=== PATIENT | male | born 1950 | race Caucasian/White ===

== ENCOUNTER → 2018-02-04 09:25 | Outpatient (CLI) | payer MEDICARE, OTHER, SELFPAY ==
[2018-02-04 12:36] LABS: Erythrocyte Sedimentation Rate 6 mm/hr (0-20)
[2018-02-04 12:38] LABS: Absolute Lymphocyte Count 1.73 X10^3/ul (0.83-4.51); Absolute Neutrophil Count 3.7 X10^3/uL (2.0-7.7); Basophil# 0.04 X10^3/uL; Basophil% 0.6 % (0-1); Eosinophil# 0.27 X10^3/uL; Eosinophils% 4.2 % (0-5); Hematocrit 42.8 % (40-54); Lymphocyte # 1.73 X10^3/ul (4.0); Lymphocyte % 26.8 % (19-41); Mean Corpuscular Hgb 30.4 pg (27.0-32.0); Mean Corpuscular Volume 86.8 fL (80-94); Mean Platelet Vol. 9.7 fl (6.2-12.0); Monocyte# 0.64 X10^3/uL; Monocyte% 9.9 % (0-10); Neutrophil # 3.71 X10^3/uL (2.7-7.7); Neutrophil % 57.6 % (47-70); Platelet Count 267 K/mm3 (150-450); RBC Distribution Width CV 12.4 % (11.6-14.6); Red Blood Count 4.93 M/mm3 (4.6-6.2); Vitamin D,25 Hydroxy 50.8 ng/mL (29.95-100.01); White Blood Count 6.5 K/mm3 (4.4-11.0)
[2018-02-04 12:39] LABS: POSITIVE COUNT NO; POSITIVE DIFFERENTIAL NO; POSITIVE MORPHOLOGY NO
[2018-02-04 12:54] LABS: Anion Gap 5 (5-15); BUN 11 mg/dL (7-18); BUN/Creat Ratio 11.3 RATIO (10-20); Calcium,Total 8.7 mg/dL (8.5-10.1); Chloride 104 mmol/L (98-107); Cholesterol 201 mg/dL (200); Creatinine, Serum 0.97 mg/dL (0.70-1.30); EST Glomerular Filtration Rate 82 mL/min (>60); Est Glom Filt Rate - Afr Amer 99 mL/min (>60); Glucose 89 mg/dL (74-106); High Density Lipoprotein 63 mg/dL; PSA,Total- Diagnostic 5.08 ng/mL (0.0-4.0); Sodium Level 138 mmol/L (136-145); Triglycerides 105 mg/dL; Very Low Density Lipoprotein 21 mg/dL (5-40)
== END ==
PROVIDERS: Family Provider Family Medicine; PCP Family Medicine; Visit Provider Family Medicine
DX: I10 Essential (primary) hypertension (principal); D64.9 Anemia, unspecified; K51.00 Ulcerative (chronic) pancolitis without complications; E78.00 Pure hypercholesterolemia, unspecified; R97.20 Elevated prostate specific antigen [PSA]; E55.9 Vitamin D deficiency, unspecified
CPT/HCPCS: 36415; 80048; 80061; 82306; 84153; 85025; 85652

== ENCOUNTER 2018-05-19 15:26 | Outpatient (RCR) | payer MEDICARE, OTHER, SELFPAY ==
--- NOTE | 2018-05-19 16:18 | HP.PTEVAL_ITS ---
Patient's Visit Information COLETTE HART is a 68 year old M referred to Physical Therapy by Eric Luu with a diagnosis of L PFitis. Date of Evaluation: 05/19/18 Physical Therapist: Homero Welsh, DPT, [place] - Visit Plan Plan: No skilled PT required . Pt is doing well and we reviewed appropriate HEP and activities and use of orthotics. He will f/.u with doctor in 2 weeks and in the unlikely case that things worsen, should be sent back for modalities. - Subjective Findings: L pFits since before December. Much better now though and almost did not come. Got customized inserts for 5 weeks. Doing stretches against wall and PROM PF adn gastroc. 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 Plays tennis 2x/week adn tolerating it now for the last 3 weeks. took 2 months off. Pain was in L heel. Now he notices it very little. None today playing tennis, sprinting without a problem. 85% better overall, Pain this week in L heel was 2/10 in am. Was in a bot for 6 weeks during the day before orthotics. Has night splint also that he wore. Sleep is good. Bathroom at night bother him. Not employed. Basic ADLs are OK. Spends day on internet. Mows lawn, rakes leaves. Push mow was hard this summer. activities are back to pretty normal. Slowly went back to tennis. - Pain L heel Pain Intensity (Out of 10): 0 Pain Intensity Range: 0, 2 - Objective Walks I and normally, transfers I. No antalgia. No tenderness to palpation In L LE. Normal foot and ankle mechanics. PROM DF 8 degrees B with knee straght, knee bent to 10 degrees L and 12 R. 4+/5 strength in all 4 ankle motions B without pain. AROM WFL ankles and knees. HS mildly tight B. SLS symmetrical and without pain. - Rehabilitation Potential Physical Therapy Diagnosis: L PFItis, resolving. Rehabilitation Potential: Good - Anticipated Interventions Patient/Client Instruction: Educate patient on: Condition For the Purpose of:: To increase tolerance to activity/condition/position Thank you for the opportunity to evaluate your patient. For Medicare and Medicare HMO plans, please review the plan of care and approve it. It will need to be FAXED BACK to us at [phone] for Medicare purposes. For Medicare only, by signing this I certify the plan of care. Please let me know if there are questions or concerns regarding this plan of care. Physician Signature: Date:
--- OUTSIDE RECORDS SUMMARY | 2018-07-14 21:49 | XMS RPT_ITS ---
:1950 Author Organization OHIP Care Team Providers Name Role Phone THOMAS MARTINEZ (PROFESSIONAL ATHLETE) Attending Unavailable MARGUERITE GARCIA Attending Unavailable THOMAS MARTINEZ (PROFESSIONAL ATHLETE) Referring Unavailable Fer Bah Attending Unavailable Fer Bah Referring Unavailable Fer Bah Primary Care Unavailable Eric Luu Attending Unavailable Eric Luu Referring Unavailable Fer Bah Primary Care Unavailable PROBLEMS PROBLEMS DATE TYPE CONDITION / CODE ATTENDING STATUS SOURCE 10/30/2016 Active Pouchitis / MARGUERITE GARCIA Active [facility] K91.850(ICD-10) Main [place] Repository PROCEDURES PROCEDURES No Procedure Records FoundRESULTS RESULTS INITAL EVALUATION (1) Observed: 05/23/2018 Status: F Source: THUAN - PT 6:49 AM REPOSITORY [facility] [address] [place] [address]. [address] [place] [address] Fax REHABILITATION SERVICES INITIAL EVALUATION MR#: [id number] Acct: [id number] Name: COLETTE HART Rep #: [id number] : 1950 68 From: Homero Welsh DPT, OCS, CSCS Referring DrPrakash: Eric Luu DPM Status: DIS RCR Insurance: MEDICARE PART A B [facility] Patient's Visit Information COLETTE HART is a 68 year old M referred to Physical Therapy by Eric Luu with a diagnosis of L PFitis. Date of Evaluation: 05/19/18 Physical Therapist: Homero Welsh DPT, OC - Visit Plan Plan: No skilled PT required . Pt is doing well and we reviewed appropriate HEP and activities and use of orthotics. He will f/.u with doctor in 2 weeks and in the unlikely case that things worsen, should be sent back for modalities. - Subjective Findings: L pFits since before December. Much better now though and almost did not come. Got customized inserts for 5 weeks. Doing stretches against wall and PROM PF adn gastroc. 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 Plays tennis 2x/week adn tolerating it now for the last 3 weeks. took 2 months off. Pain was in L heel. Now he notices it very little. None today playing tennis, sprinting without a problem. 85% better overall, Pain this week in L heel was 2/10 in am. Was in a bot for 6 weeks during the day before orthotics. Has night splint also that he wore. Sleep is good. Bathroom at night bother him. Not employed. Basic ADLs are OK. Spends day on internet. Mows lawn, rakes leaves. Push mow was hard this summer. activities are back to pretty normal. Slowly went back to tennis. - Pain L heel Pain Intensity (Out of 10): 0 Pain Intensity Range: 0, 2 - Objective Walks I and normally, transfers I. No antalgia. No tenderness to palpation In L LE. Normal foot and ankle mechanics. PROM DF 8 degrees B with knee straght, knee bent to 10 degrees L and 12 R. 4+/5 strength in all 4 ankle motions B without pain. AROM WFL ankles and knees. HS mildly tight B. SLS symmetrical and without pain. - Rehabilitation Potential Physical Therapy Diagnosis: L PFItis, resolving. Rehabilitation Potential: Good - Anticipated Interventions Patient/Client Instruction: Educate patient on: Condition For the Purpose of:: To increase tolerance to activity/condition/position Thank you for the opportunity to evaluate your patient. For Medicare and Medicare HMO plans, please review the plan of care and approve it. It will need to be FAXED BACK to us at [phone] for Medicare purposes. For Medicare only, by signing this I certify the plan of care. Please let me know if there are questions or concerns regarding this plan of care. Physician Signature: Date: <Electronically signed by Homero Welsh DPT, OCS, CSCS> 05/23/18 0649 CC: Eric Luu DPM; Fer Bah MD EBG Signed PROGRESS Observed: 05/18/2018 Status: COMPLETED Source: [place] 6:11 PM [facility] [place] REPOSITORY HNO ID: [id number] Author: Dara Hall Oberc Service: (none) Author Type: (none) Type: Progress Notes Filed: 05/18/2018 6:14 PM Note Text: spoke with patient and family/friend at bedside post procedure. Procedure Findings: Findings: ? ? ?Normal cuff ? ? ?Normal pouch body ? ? ?Normal afferent limb. ? ? ?Bx taken Impression: Plan: 1. scope as above 2. Green Tea extract - BCGC 3.Biopsy obtained, await path 4. Maintain Weight , 10 % 5. Follow a High Protein , Low carb, Low fiber diet 's article about Green tea and effect on Pouch SURGICAL PATHOLOGY Observed: 05/18/2018 Status: C Source: [place] 5:56 PM [facility] REPOSITORY ADDENDUM PRESENT Specimen originated from [facility] Specimen #: [id number] Submitting Physician: MARGUERITE GARCIA ([id number]) FINAL DIAGNOSIS 1. Terminal ileum, biopsy (A) - Focal mild chronic active enteritis; negative for granulomas, pyloric gland metaplasia and dysplasia; see comment. 2. Pouch, biopsy (B) - Chronic inactive enteritis; negative for granulomas, pyloric gland metaplasia and dysplasia; see comment. 3. Rectal cuff, biopsy (C) - Chronic inactive enteritis; negative for granulomas, pyloric gland metaplasia and dysplasia; see comment. SS/kr 05/20/2018 COMMENT 1,2,3. IgG-4 immunostain is pending; the result will be issued in an addendum. Sandy Coley M.D. (Electronic Signature) SPECIMEN SUBMITTED A: TERMINAL ILEUM, BIOPSY B: POUCH, BIOPSY C: RECTAL CUFF, BIOPSY ADDENDUM Date Ordered: 05/23/2018 Date Reported: 05/23/2018 At the request of the clinician, IgG-4 immunostain is performed and shows three IgG-4 positive plasma cells in one high-power field in part A; four IgG-4 positive plasma cells in one high-power field in part B; and seven IgG-4 positive plasma cells in one high-power field in part C. The significance of these findings is unclear. SS/dss 05/23/2018 Laboratory Developed Test (LDT) Disclaimer: Positive and negative controls stain appropriately. Performance characteristics of immunohistochemical, immunofluorescent and chromogenic in-situ hybridization tests have been determined by [facility]'s [facility] [place] ([facility]) in a manner consistent with CLIA requirements. One or more of these tests have not been cleared or approved by the FDA. [facility] is regulated under CLIA as qualified to perform high-complexity testing. These tests are used for clinical purposes. They should not be regarded as investigational or for research. Addendum Pathologist: Sandy Coley M.D. Electronic Signature CLINICAL DATA HISTORY OF POUCHITIS R/O CROHN'S, DYSPLASIA, IgG-4, AND AUTOIMMUNE GROSS DESCRIPTION A. Received in formalin are two pieces of tucker, soft tissue aggregating to 0.7 x 0.2 x 0.2 cm. Totally submitted in one cassette. B. Received in formalin are two pieces of tucker, soft tissue aggregating to 0.8 x 0.2 x 0.1 cm. Totally submitted in one cassette. C. Received in formalin is one piece of tucker, soft tissue measuring 0.4 x 0.2 x 0.2 cm. Totally submitted in one cassette. Gross examination performed at [facility], [address] [place] [address] 05/19/2018 3:49:05 PM Date of Report: 05/20/2018 Date of Procedure: 05/18/2018 Date of Receipt: 05/19/2018 Submitted by: MARGUERITE GARCIA ([id number]) Location: [facility] A3 Diagnostic interpretation performed at [place] [address]. PROGRESS Observed: 04/13/2018 Status: COMPLETED Source: [place] 11:40 AM [facility] REPOSITORY HNO ID: [id number] Author: Geneva Perdomo Service: (none) Author Type: (none) Type: Progress Notes Filed: 04/24/2018 8:36 PM Note Text: Follow Up Visit/ IBD Medications: Current Outpatient Prescriptions: S-Adenosylmethionine (MAKSIM-E) 400 mg tab Take by mouth once daily. omega-3/dha/epa/dpa/fish oil (OMEGA-3 2100 ORAL) Take by mouth once daily. ciprofloxacin HCl (CIPRO) 250 mg tablet Take 1 tablet by mouth twice daily as needed. CALCIUM CARBONATE/VITAMIN D3 (VITAMIN D-3 ORAL) Take 600 Units by mouth once daily. Evening Wingate Oil 500 mg cap Take 1 capsule by mouth once daily. Bifidobacterium Infantis (ALIGN) 4 mg cap Take 1 capsule by mouth twice daily. Ramipril 5 mg tablet Take 5 mg by mouth once daily. VITAMIN B COMPLEX (B COMPLEX ORAL) Take by mouth once daily. clobetasol 0.05 % TOPICAL cream Apply selectively as directed to affected spots or lesions or rash of eczematous dermatitis qday to bid (once to twice per day) on open areas of hands or forearms until clear and then can taper as able to off or lowest frequency of use possible while still effective. AVOID face, eyes, eyelids, and deep fold areas. Loperamide-Simethicone (IMODIUM ADVANCED) 2-125 mg ORAL Tab Take 4 to 6 tablets daily, as needed CITALOPRAM 20 MG TAB Take 30 mg daily CALCIUM 500 1,250 MG ORAL TAB Take one(1) tablet daily. MULTIVITAMIN TABLET Take one(1) tablet daily. No current facility-administered medications for this visit. Diagnosis:Ulcerative colitis, May 2001 - EXTENT: pancolitis Onset of symptoms: 2000 - laparoscopic proctocolectomy, ileal pouch-anal anastomosis, loop ileostomy. Loop closure 02/2004. 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 12/26/2010 71.215 kg (157 lb) 05/02/2013 73.9 kg (163 lb) 10/24/2015 74.8 kg (165 lb) 04/13/2018 74.4 kg (164 lb) Subjective: 68 year old male with hx of pouchitis here for follow-up. Last seen 10/24/2015 weight 165lbs. Changes and test results since last visit: Reviewed outside labs brought to visit by patient ([facility] - 02/04/2018) - cbc/diff - all wnl - CMP - WNL - Vitamin D 25 Hyrdroxy = normal range at 50.8 Last pouchoscopy 01/2017 - normal FINAL DIAGNOSIS 1. Terminal ileum, biopsy (A) - Active ileitis. - Negative for pyloric gland metaplasia, granulomas, significant crypt apoptosis, or dysplasia. 2. Pouch, biopsy (B) - Chronic active enteritis. - Negative for pyloric gland metaplasia, granulomas, significant crypt apoptosis, or dysplasia. 3. Rectal cuff, biopsy (C) - Chronic active proctitis. - Chronic active enteritis. - Negative for pyloric gland metaplasia, granulomas, significant crypt apoptosis, or dysplasia. Current symptoms are: 8 bowel movements per day which are soft. Takes Pepto before each meal and at bedtime or imodium qid to control diarrhea. Mild rectal urgency. No rectal bleeding. No abdominal pain. Appetite is good. Weight/Height: BP 129/69 Pulse 69 Temp 36.6 ?C (97.8 ?F) (Oral) Ht 167.6 cm (5' 6) Wt 74.4 kg (164 lb) SpO2 93% BMI 26.47 kg/m? , which is stable. No eye, skin or joint manifestations of IBD. Nonsmoker Avoids NSAIDs. Objective: Physical Examination BP 129/69 Pulse 69 Temp 36.6 ?C (97.8 ?F) (Oral) Ht 167.6 cm (5' 6) Wt 74.4 kg (164 lb) SpO2 93% BMI 26.47 kg/m? General Appearance: alert, oriented x 3, pleasant and in no acute distress Lungs: CTA bilaterally Heart:regular rate and rhythm, no murmurs or gallops Abdomen: Not distended. Normal bowel sounds. Soft and non- tender. No masses or organomegaly. Skin: no rashes or lesions Lymph: No cervical, axillary, or supraclavicular adenopathy. Impression/Plan:: (K91.850) Pouchitis (HCC) (primary encounter diagnosis) Comment: He has hx of pouchitis that responds to Cipro. Having 8 soft bms per day. Plan: - Surveillance pouchoscopy - Rx for Cipro e-scripted. Cautioned about risk of tendon rupture. Says tindamax and Xifaxan did not work as well as Cipro for him. Tried Xifaxan (550 mg/day) twice without significant improvement. Was on Tindamax two weeks, followed by ALIGN probiotic. Flared one week after stopping Tindamax. F/U with Dr. Dempsey after pouchoscopy. Thomas Martinez APRN.DUCK FARMER CNOV Observed: 04/13/2018 Status: COMPLETED Source: [place] 11:30 AM [facility] REPOSITORY Office Visit (GASTMN) COLETTE HART ([id number]) 1950 M [facility] Date Time Provider Department 04/13/18 11:30 AM THOMAS MARTINEZ) GASTMN During your visit today, we recorded the following information about you: Temperature Pulse Blood pressure Weight 97.8 degrees 69/minute 129/69 74.4 kg Height 1.676 m Geneva Perdomo 04/13/2018 11:43 AM Addendum Follow Up Visit/ IBD Medications: Current Outpatient Prescriptions: S-Adenosylmethionine (MAKSIM-E) 400 mg tab Take by mouth once daily. omega-3/dha/epa/dpa/fish oil (OMEGA-3 2100 ORAL) Take by mouth once daily. ciprofloxacin HCl (CIPRO) 250 mg tablet Take 1 tablet by mouth twice daily as needed. CALCIUM CARBONATE/VITAMIN D3 (VITAMIN D-3 ORAL) Take 600 Units by mouth once daily. Evening Wingate Oil 500 mg cap Take 1 capsule by mouth once daily. Bifidobacterium Infantis (ALIGN) 4 mg cap Take 1 capsule by mouth twice daily. Ramipril 5 mg tablet Take 5 mg by mouth once daily. VITAMIN B COMPLEX (B COMPLEX ORAL) Take by mouth once daily. clobetasol 0.05 % TOPICAL cream Apply selectively as directed to affected spots or lesions or rash of eczematous dermatitis qday to bid (once to twice per day) on open areas of hands or forearms until clear and then can taper as able to off or lowest frequency of use possible while still effective. AVOID face, eyes, eyelids, and deep fold areas. Loperamide-Simethicone (IMODIUM ADVANCED) 2-125 mg ORAL Tab Take 4 to 6 tablets daily, as needed CITALOPRAM 20 MG TAB Take 30 mg daily CALCIUM 500 1,250 MG ORAL TAB Take one(1) tablet daily. MULTIVITAMIN TABLET Take one(1) tablet daily. No current facility-administered medications for this visit. Diagnosis:Ulcerative colitis, May 2001 - EXTENT: pancolitis Onset of symptoms: 2000 - laparoscopic proctocolectomy, ileal pouch-anal anastomosis, loop ileostomy. Loop closure 02/2004. 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 12/26/2010 71.215 kg (157 lb) 05/02/2013 73.9 kg (163 lb) 10/24/2015 74.8 kg (165 lb) 04/13/2018 74.4 kg (164 lb) Subjective: 68 year old male with hx of pouchitis here for follow-up. Last seen 10/24/2015 weight 165lbs. Changes and test results since last visit: Reviewed outside labs brought to visit by patient ([facility] - 02/04/2018) - cbc/diff - all wnl - CMP - WNL - Vitamin D 25 Hyrdroxy = normal range at 50.8 Last pouchoscopy 01/2017 - normal FINAL DIAGNOSIS 1. Terminal ileum, biopsy (A) - Active ileitis. - Negative for pyloric gland metaplasia, granulomas, significant crypt apoptosis, or dysplasia. 2. Pouch, biopsy (B) - Chronic active enteritis. - Negative for pyloric gland metaplasia, granulomas, significant crypt apoptosis, or dysplasia. 3. Rectal cuff, biopsy (C) - Chronic active proctitis. - Chronic active enteritis. - Negative for pyloric gland metaplasia, granulomas, significant crypt apoptosis, or dysplasia. Current symptoms are: 8 bowel movements per day which are soft. Takes Pepto before each meal and at bedtime or imodium qid to control diarrhea. Mild rectal urgency. No rectal bleeding. No abdominal pain. Appetite is good. Weight/Height: BP 129/69 Pulse 69 Temp 36.6 ?C (97.8 ?F) (Oral) Ht 167.6 cm (5' 6) Wt 74.4 kg (164 lb) SpO2 93% BMI 26.47 kg/m? , which is stable. No eye, skin or joint manifestations of IBD. Nonsmoker Avoids NSAIDs. Objective: Physical Examination BP 129/69 Pulse 69 Temp 36.6 ?C (97.8 ?F) (Oral) Ht 167.6 cm (5' 6) Wt 74.4 kg (164 lb) SpO2 93% BMI 26.47 kg/m? General Appearance: alert, oriented x 3, pleasant and in no acute distress Lungs: CTA bilaterally Heart:regular rate and rhythm, no murmurs or gallops Abdomen: Not distended. Normal bowel sounds. Soft and non- tender. No masses or organomegaly. Skin: no rashes or lesions Lymph: No cervical, axillary, or supraclavicular adenopathy. Impression/Plan:: (K91.850) Pouchitis (HCC) (primary encounter diagnosis) Comment: He has hx of pouchitis that responds to Cipro. Having 8 soft bms per day. Plan: - Surveillance pouchoscopy - Rx for Cipro e-scripted. Cautioned about risk of tendon rupture. Says tindamax and Xifaxan did not work as well as Cipro for him. Tried Xifaxan (550 mg/day) twice without significant improvement. Was on Tindamax two weeks, followed by ALIGN probiotic. Flared one week after stopping Tindamax. F/U with Dr. Dempsey after pouchoscopy. Thomas Martinez, YAZ.DUCK FARMER Referring Provider: SELF [200] Allergies As of Date: 04/13/2018 Noted Allergy Reaction PENICILLINS 10/19/2002 Comments: doesn't remember Date Reviewed: 04/13/2018 Reviewed by: Geneva Perdomo - Fully Assessed Reason for Visit: Follow Up [171] Primary Visit Diagnosis:Pouchitis (HCC) [K91.850] Order(s):ciprofloxacin HCl (CIPRO) 250 mg tabletTake 1 tablet by mouth twice daily as needed.Disp: 180 tabletRfl: 1 POUCHOSCOPY [[id number]] Order #: [id number] FUTURE Prescriptions as of 04/13/2018 Sig: S-ADENOSYLMETHIONINE 400 MG T* Take by mouth once daily. OMEGA-3 2100 ORAL Take by mouth once daily. CIPROFLOXACIN 250 MG TABLET Take 1 tablet by mouth twice * VITAMIN D-3 ORAL Take 600 Units by mouth once * EVENING PRIMROSE OIL 500 MG C* Take 1 capsule by mouth once * BIFIDOBACTERIUM INFANTIS 4 MG* Take 1 capsule by mouth twice* RAMIPRIL 5 MG TABLET Take 5 mg by mouth once daily. B COMPLEX ORAL Take by mouth once daily. CLOBETASOL 0.05 % TOPICAL CRE* Apply selectively as direct* LOPERAMIDE-SIMETHICONE 2 MG-1* Take 4 to 6 tablets daily, as* CITALOPRAM 20 MG TABLET Take 30 mg daily CALCIUM 500 500 MG CALCIUM (1* Take one(1) tablet daily. MULTIVITAMIN TABLET Take one(1) tablet daily. Problem List As Of Date 04/13/2018 Noted Resolved Ulcerative colitis (HCC) [K51.90] INVALID FOR* ANAL OR RECTAL PAIN [K62.89] INVALID FOR* DIARRHEA NOS [R19.7] INVALID FOR* NEVUS, NON-NEOPLASTIC [I78.1] INVALID FOR* BENIGN TANA SKIN TRUNK [D23.5] INVALID FOR* SEBACEOUS GLAND DIS NEC///xerosis [L73.8] INVALID FOR* DERMATITIS NOS [L25.9] INVALID FOR* CHR SOLAR SKIN DAMAGE NOS [L57.8] INVALID FOR* SEBORRHEIC KERATOSIS NOS [L82.1] INVALID FOR* SEBORRHEIC KERATOSIS INFLAMED [L82.0] INVALID FOR* Actinic Keratosis (Premalignant AK) [L57.0] INVALID FOR* Sebaceous hyperplasia [L73.8] INVALID FOR* Hand eczema [L30.9] INVALID FOR* Pompholyx eczema [L30.1] INVALID FOR* Actinic skin damage [L57.8] INVALID FOR* Herniated disc [SFE5689] More... Pouchitis (HCC) [K91.850] INVALID FOR* Prescriptions ordered this encounter Disp Refills Start End CIPROFLOXACIN 250 MG TABLET 180 * 1 04/13/2018 Class: Print RX Route: ORAL Sig: Take 1 tablet by mouth twice daily as needed. Medications Discontinued During This Encounter ciprofloxacin HCl (CIPRO) 250 mg tab* 180 * 1 08/27/2017 04/13/2018 Route: ORAL Sig: Take 1 tablet by mouth twice daily as needed. Disc: Reason for discontinue is not on file. Encounter Status:Closed by THOMAS MARTINEZ CNP on 04/24/18 ERYTHROCYTE SED RATE Collected: 02/04/2018 Status: F Source: [place] 9:34 AM REPOSITORY Order Comment: Order Date: 10/29/17 Order Info: [id number] - CBCD Order Info: [id number] - SED TYPE CODE TESTS RESULT OUT OF RANGE REFERENCE UNITS LAB L102.0000 0-20 mm/hr Normal SED RATE 6 Performed By: #### L101.9900, L506.1000, L100.0100, L500.2500, L501.9940 #### [facility] [address] [place], [address] VITAMIN D,25 HYDROXY Collected: 02/04/2018 Status: F Source: [place] 9:34 AM REPOSITORY Order Comment: Order Date: 10/29/17 Order Info: [id number] - VITD25 TYPE CODE TESTS RESULT OUT OF RANGE REFERENCE UNITS LAB L506.1000 29.95-100.01 ng/mL Normal Vitamin D 50.8 25-OH Result Comment: Vitamin D 25(OH) Status Range Deficiency <20 ng/mL (50nmol/L) Insuffciency 20 - 30 ng/mL (50 - 75 nmol/L) Sufficiency 30 - 100 ng/mL (75 - 250 nmol/L) Toxicity >100 ng/mL (>250 nmol/L) Performed By: #### L101.9900, L506.1000, L100.0100, L500.2500, L501.9940 #### [facility] [address] [place], [address] CBC W/DIFF, AUTOMATED Collected: 02/04/2018 Status: F Source: [place] 9:34 AM REPOSITORY Order Comment: Order Date: 10/29/17 Order Info: [id number] - CBCD Order Info: [id number] - SED TYPE CODE TESTS RESULT OUT OF RANGE REFERENCE UNITS LAB L100.1000 4.4-11.0 K/mm3 Normal WBC 6.5 LAB L100.1200 4.6-6.2 M/mm3 Normal RBC 4.93 LAB L100.1300 13.0-16.5 g/dl Normal HGB 15.0 LAB L100.1400 40-54 % Normal HCT 42.8 LAB L100.1500 80-94 fL Normal MCV 86.8 LAB L100.1600 27.0-32.0 pg Normal MCH 30.4 LAB L100.1700 32-36 g/gl Normal MCHC 35.0 LAB L100.1810 11.6-14.6 % Normal RDW CV 12.4 LAB L100.1820 35.1-43.9 fl Normal RDW SD 39.0 LAB L100.1900 150-450 K/mm3 Normal PLT 267 LAB L100.2000 6.2-12.0 fl Normal MPV 9.7 LAB L100.2100 47-70 % Normal NEUT% 57.6 LAB L100.2200 19-41 % Normal LY% 26.8 LAB L100.2300 0-10 % Normal MONO% 9.9 LAB L100.2400 0-5 % Normal EO% 4.2 LAB L100.2500 0-1 % Normal BASO% 0.6 LAB L100.2550 0.0-0.9 % Normal IM GRAN % 0.900 Result Comment: IG% - Immature Granulocytes (promyelocytes, myelocytes and metamyelocytes) > 1% indicates that a LEFT SHIFT is Present. LAB L100.2620 2.0-7.7 X10 3/uL Normal Absolute Neut 3.7 LAB L100.2720 0.83-4.51 X10 3/ul Normal Absolute Lymph 1.73 Performed By: #### L101.9900, L506.1000, L100.0100, L500.2500, L501.9940 #### [facility] [address] [place], [address] BASIC METABOLIC Collected: 02/04/2018 Status: F Source: [place] PROFILE (BMP) 9:34 AM REPOSITORY Order Comment: Order Date: 10/29/17 Order Info: [id number] - BMP Order Info: [id number] - LIPID Order Info: 0783-1 - PSAD TYPE CODE TESTS RESULT OUT OF RANGE REFERENCE UNITS LAB L501.0100 74-106 mg/dL Normal GLU 89 Result Comment: Please note revised GLUCOSE reference range effective 2017. LAB L501.1000 7-18 mg/dL Normal BUN 11 LAB L501.1100 0.70-1.30 mg/dL Normal CREAT,SERUM 0.97 Result Comment: The validity of the calculated GFR AND GFRAA in patients over 70 years has not been determined. Clinical correlation is essential. LAB L501.1110 >60 mL/min Normal EST GFR 82 Result Comment: Non- GFR Calc LAB L501.1115 >60 mL/min Normal EST GFR - AA 99 Result Comment: GFR Calc LAB L501.1300 10-20 RATIO Normal BUN/CRE 11.3 LAB L501.2200 8.5-10.1 mg/dL CA Normal 8.7 LAB L501.5300 136-145 mmol/L NA Normal 138 LAB L501.5600 3.5-5.1 mmol/L K Normal 4.0 LAB L501.5900 98-107 mmol/L CL Normal 104 LAB L501.6100 21.0-32.0 mmol/L Normal CO2 29.0 LAB L501.6200 5-15 Normal GAP 5 Performed By: #### L101.9900, L506.1000, L100.0100, L500.2500, L501.9940 #### [facility] [address] [place], [place], [address] PSA,TOTAL- DIAGNOSTIC Collected: 02/04/2018 Status: F Source: [place] 9:34 AM REPOSITORY Order Comment: Order Date: 10/29/17 Order Info: [id number] - BMP Order Info: [id number] - LIPID Order Info: 0783-1 - PSAD TYPE CODE TESTS RESULT OUT OF REFERENCE UNITS RANGE LAB L501.9940 0.0-4.0 ng/mL PSA, High DIAGNOSTIC 5.08 Result Comment: This test was performed using the TPSA assay method for the [employer] / TLL chemistry system. Values obtained with different assay methods cannot be used interchangably. When changing PSA assays in the course of monitoring a patient, additional sequential testing should be carried out to confirm baseline values. Performed By: #### L101.9900, L506.1000, L100.0100, L500.2500, L501.9940 #### [facility] [address] [place], [place], [address] LIPID PROFILE Collected: 02/04/2018 Status: F Source: [place] 9:34 AM REPOSITORY Order Comment: Order Date: 10/29/17 Order Info: [id number] - BMP Order Info: [id number] - LIPID Order Info: 0783-1 - PSAD TYPE CODE TESTS RESULT OUT OF RANGE REFERENCE UNITS LAB L501.4900 200 mg/dL High CHOL 201 Result Comment: <200 mg/dL Desirable 200-240 mg/dL Borderline >240 mg/dL High Risk LAB L501.5000 mg/dL Normal TRIG 105 Result Comment: The drugs N-Acetylcysteine and Metamizole may falsely depress this assay. Serum Triglycerides Reference Interval Normal <150 mg/dL Borderline high 150 - 199 mg/dL High 200 - 499 mg/dL Very High > or = 500 mg/dL LAB L501.6400 mg/dL Normal HDL 63 Result Comment: The drugs N-Acetylcysteine and Metamizole may falsely depress this assay. Reference Range HDL <40 mg/dL Low HDL Cholesterol HDL >or= 60 mg/dL High HDL Cholesterol LAB L501.6500 0-130 mg/dL Normal LDL 117 LAB L501.6600 5-40 mg/dL Normal VLDL 21 Performed By: #### L500.4100 #### [facility] [address] [place], [address] ALLERGIES ALLERGIES DATE TYPE / CODE NAME / CODE REACTION SEVERITY SOURCE 10/19/2002 Drug PENICILLINS [facility] Class/63128 [address] [place] 1003(SNOMED Repository CT) ENCOUNTERS ENCOUNTERS ADMIT/DISCHARGE ACCOUNT ADMITTING ENCOUNTER LOCATION SOURCE NUMBER CLASS 05/19/2018/05/19/[id number] ing:PT Repository 05/18/2018/05/18/20 [id number] Ambulatory [address] Repository 04/13/2018/04/25/20 [id number] Ambulatory [address] Repository 02/04/2018 [id number] [facility] ing:MTLAB Repository PAYERS PAYERS ENCOUNTER GUARANTOR PAYER SUBSCRIBER SOURCE 05/19/2018 COLETTE A Primary COLETTE A Thuan [id number] Insurance:MEDICARE KLISEDOB: [facility] [id number] Number: Repository [id number]: [phone] [id number] [phone] () Date:2016-02-20 05/19/2018 Secondary COLETTE A Thuan Insurance:MEDICAL KLISEDOB: [facility] [id number] Hospital Number: Repository [id number] Date:[id number], [place] [id number]: 05/19/2018 Tertiary NOT GIVENUNK [place] Insurance:SELF PAY [facility] Number: Effective Repository Date:2018-05-13 02/04/2018 COLETTE A Primary COLETTE A Thuan [id number] Insurance:MEDICARE KLISEDOB: [facility] [id number] Number: Repository [id number]: [phone] [id number] [phone] (HP) Date:2018-02-04 02/04/2018 Secondary COLETTE A [place] Insurance:MEDICAL KLISEDOB: [facility] [id number] Hospital Number: Repository [id number] Date:[id number] [address] [place] [id number]: 02/04/2018 Tertiary NOT GIVENUNK [place] Insurance:SELF PAY [facility] Number: Effective Repository Date:2018-02-04
== END 2018-05-19 19:00 | disposition home or self-care (01) ==
LOC: PT 15:26
PROVIDERS: Family Provider Family Medicine; PCP Family Medicine; Referring Provider Podiatrist; Visit Provider Podiatrist
DX: M72.2 Plantar fascial fibromatosis (principal); M77.32 Calcaneal spur, left foot
CPT/HCPCS: 97110; 97161

== ENCOUNTER → 2019-01-04 08:40 | Outpatient (CLI) | payer MEDICARE, OTHER, SELFPAY ==
[2019-01-04 10:20] LABS: Erythrocyte Sedimentation Rate 5 mm/hr (0-20)
[2019-01-04 10:23] LABS: Absolute Lymphocyte Count 1.66 X10^3/uL (0.83-4.51); Absolute Neutrophil Count 3.3 X10^3/uL (2.0-7.7); Basophil# 0.06 X10^3/uL; Eosinophil# 0.22 X10^3/uL; Eosinophils% 3.7 % (0-5); Hematocrit 43.1 % (40-54); Hemoglobin 14.6 g/dL (13.0-16.5); Lymphocyte # 1.66 X10^3/ul (4.0); Lymphocyte % 27.9 % (19-41); Mean Corp Hgb Conc 33.9 g/dL (32-36); Mean Corpuscular Hgb 29.8 pg (27.0-32.0); Mean Platelet Vol. 9.2 fl (6.2-12.0); Monocyte# 0.65 X10^3/uL; Monocyte% 10.9 % (0-10); NRBC Flagged by Analyzer 0 % (0-5); Neutrophil # 3.26 X10^3/uL (2.7-7.7); Platelet Count 245 K/mm3 (150-450); RBC Distribution Width CV 12.1 % (11.6-14.6); RBC Distribution Width SD 38.9 fl (35.1-43.9); White Blood Count 5.9 K/mm3 (4.4-11.0)
[2019-01-04 10:49] LABS: ALB/GLOB Ratio 1.1 RATIO (0.9-2.4); AST(SGOT) 21 U/L (15-37); Alanine Aminotransfer ALT/SGPT 29 U/L (16-61); Albumin, Serum 3.7 g/dL (3.2-5.0); Alkaline Phosphatase 63 U/L (45-117); Anion Gap 9 (5-15); BUN 14 mg/dL (7-18); BUN/Creat Ratio 14.1 RATIO (10-20); Calcium,Total 8.6 mg/dL (8.5-10.1); Chloride 106 mmol/L (98-107); Creatinine, Serum 0.99 mg/dL (0.70-1.30); EST Glomerular Filtration Rate 80 mL/min (>60); Est Glom Filt Rate - Afr Amer 97 mL/min (>60); Globulin 3.4 g/dL (2.2-4.2); Glucose 96 mg/dL (74-106); PSA,Total- Diagnostic 5.07 ng/mL (0.0-4.0); Potassium 4.2 mmol/L (3.5-5.1); Protein, Total 7.1 g/dL (6.4-8.2); Sodium Level 142 mmol/L (136-145)
[2019-01-05 10:16] LABS: Cholesterol 199 mg/dL (200); High Density Lipoprotein 65 mg/dL; Triglycerides 65 mg/dL; Very Low Density Lipoprotein 13 mg/dL (5-40)
== END ==
PROVIDERS: Family Provider Family Medicine; PCP Family Medicine; Referring Provider Family Medicine; Visit Provider Family Medicine
DX: Z13.220 Encounter for screening for lipoid disorders (principal); K51.00 Ulcerative (chronic) pancolitis without complications; I10 Essential (primary) hypertension; R97.20 Elevated prostate specific antigen [PSA]
CPT/HCPCS: 36415; 80053; 80061; 84153; 85025; 85652

== ENCOUNTER → 2019-05-02 10:32 | Outpatient (CLI) | payer MEDICARE, OTHER, SELFPAY ==
[2019-05-02 12:20] LABS: Absolute Lymphocyte Count 1.07 X10^3/uL (0.83-4.51); Absolute Neutrophil Count 2.9 X10^3/uL (2.0-7.7); Basophil# 0.05 X10^3/uL; Eosinophil# 0.23 X10^3/uL; Eosinophils% 4.6 % (0-5); Hematocrit 44.8 % (40-54); Hemoglobin 14.6 g/dL (13.0-16.5); Lymphocyte # 1.07 X10^3/ul (4.0); Lymphocyte % 21.4 % (19-41); Mean Corp Hgb Conc 32.6 g/dL (32-36); Mean Corpuscular Volume 88.9 fL (80-94); Mean Platelet Vol. 9.4 fl (6.2-12.0); Monocyte# 0.67 X10^3/uL; Monocyte% 13.4 % (0-10); NRBC Flagged by Analyzer 0 % (0-5); Neutrophil # 2.94 X10^3/uL (2.7-7.7); Platelet Count 258 K/mm3 (150-450); RBC Distribution Width CV 12.9 % (11.6-14.6); RBC Distribution Width SD 41.9 fl (35.1-43.9); Red Blood Count 5.04 M/mm3 (4.6-6.2)
[2019-05-02 12:59] LABS: Vitamin D,25 Hydroxy 37.7 ng/mL (29.95-100.01)
[2019-05-02 13:07] LABS: Thyroid Stim Hormone (TSH) 1.25 uIU/mL (0.358-3.74)
[2019-05-03 11:41] LABS: PSA, Free 1.11 ng/mL; PSA, Free % 19.5 % (.); PSA, Total Ultrasensitive 5.7 ng/mL (0.0-4.0)
== END ==
PROVIDERS: Family Provider Family Medicine; PCP Family Medicine; Referring Provider Family Medicine; Visit Provider Family Medicine
DX: I10 Essential (primary) hypertension (principal); R97.20 Elevated prostate specific antigen [PSA]; E55.9 Vitamin D deficiency, unspecified
CPT/HCPCS: 36415; 82306; 84153; 84154; 84443; 85025

== ENCOUNTER → 2019-05-03 08:53 | Outpatient (CLI) | payer MEDICARE, OTHER, SELFPAY ==
--- NOTE | 2019-05-03 09:04 | US_ITS ---
STUDY: ULTRASOUND - URINARY BLADDER REASON FOR EXAM: Male, 69 years old. Urinary retention TECHNIQUE: Ultrasound evaluation of the urinary bladder was performed with real-time and static martin-scale imaging. COMPARISON: None. FINDINGS: There is no right UVJ calculus. There is a visualized right ureteral jet. There is no left UVJ calculus. There is a visualized left ureteral jet. The distended volume of the urinary bladder is 301.07 ml. The empty volume of the urinary bladder is 62.31 ml. The bladder wall is within normal limits. The bladder wall measures 4.2 mm. There is no demonstrated bladder wall mass lesion. There are no demonstrated bladder calculi. The prostate gland measures 8.8 x 3.4 x 3.3 cm. US/Post Void Residual Bladder IMPRESSION: Moderate post void residual. No bladder wall thickening, bladder mass, or bladder stone. Both ureter jets are visible. Electronically Signed: Kyler Pelletier MD at 16:55 EST Tel , Service support ,
== END ==
PROVIDERS: Family Provider Family Medicine; PCP Family Medicine; Referring Provider Family Medicine; Visit Provider Family Medicine
DX: R33.9 Retention of urine, unspecified (principal)
CPT/HCPCS: 51798

== ENCOUNTER → 2019-12-01 10:04 | Outpatient (CLI) | payer MEDICARE, OTHER, SELFPAY ==
[2019-12-01 12:44] LABS: AST(SGOT) 28 U/L (15-37); Alanine Aminotransfer ALT/SGPT 35 U/L (16-61); Albumin, Serum 3.6 g/dL (3.2-5.0); Alkaline Phosphatase 65 U/L (45-117); Anion Gap 6 (5-15); BUN 13 mg/dL (7-18); BUN/Creat Ratio 14.2 RATIO (10-20); Calcium,Total 8.9 mg/dL (8.5-10.1); Chloride 104 mmol/L (98-107); Cholesterol 187 mg/dL (200); Creatinine, Serum 0.92 mg/dL (0.70-1.30); EST Glomerular Filtration Rate 87 mL/min (>60); Est Glom Filt Rate - Afr Amer 106 mL/min (>60); Globulin 3.6 g/dL (2.2-4.2); Glucose 94 mg/dL (74-106); High Density Lipoprotein 67 mg/dL; Potassium 3.9 mmol/L (3.5-5.1); Protein, Total 7.2 g/dL (6.4-8.2); Sodium Level 138 mmol/L (136-145); Triglycerides 66 mg/dL; Very Low Density Lipoprotein 13 mg/dL (5-40)
== END ==
PROVIDERS: PCP Family Medicine; Visit Provider Family Medicine
DX: I65.29 Occlusion and stenosis of unspecified carotid artery (principal)
CPT/HCPCS: 36415; 80053; 80061

== ENCOUNTER → 2019-12-07 12:50 | Outpatient (CLI) | payer MEDICARE, OTHER, SELFPAY ==
--- NOTE | 2019-12-07 12:57 | CDU_ITS ---
Reason For Study: Carotid stenosis Rt. Velocities/BP Lt. Velocities/BP Prox CCA 103.4/13.4 cm/sec. Prox CCA 97.4/12.6 cm/sec. Mid CCA 96.9/17.3 cm/sec. Mid CCA 112.1/16.3 cm/sec. Dist CCA 81.2/13.4 cm/sec. Dist CCA 74/12.9 cm/sec. Prox ICA 84.6/17 cm/sec. Prox ICA 54.4/15.1 cm/sec. Mid ICA 79.1/18.8 cm/sec. Mid ICA 80.2/17.6 cm/sec. Dist ICA 77.8/20 cm/sec. Dist ICA 53.2/15.3 cm/sec. Rt. ICA/CCA = 0.9. Lt. ICA/CCA = 0.8. Prox ECA 148.5/7.9 cm/sec. Prox ECA 69.1 cm/sec. Rt. Vert. 40.9/11.4 cm/sec. Lt. Vert. 48.7/11.3 cm/sec. Right Extracranial There is intimal thickening but no significant atherosclerotic plaque noted in the right common carotid artery. There is heterogeneous, irregular atherosclerotic plaque noted in the right internal carotid artery. There is no significant atherosclerotic plaque noted in the right external carotid artery. Antegrade flow is noted in the right vertebral artery. Left Extracranial There is homogeneous, smooth atherosclerotic plaque noted in the left common carotid artery. There is heterogeneous, irregular atherosclerotic plaque noted in the left internal carotid artery. There is no significant atherosclerotic plaque noted in the left external carotid artery. Antegrade flow is noted in the left vertebral artery. Procedure Carotid Duplex 59957. Exam performed in department. Interpretation Summary Mild (<50%) stenosis right extracranial internal carotid. Mild (<50%) stenosis left extracranial internal carotid. Flow within the vertebral arteries is antegrade bilaterally. Ordering Physician: Fer Marcos Referring Physician: Fer Marcos Performed By: Lola Onofre T
== END ==
PROVIDERS: PCP Family Medicine; Referring Provider Family Medicine; Visit Provider Family Medicine
DX: I65.29 Occlusion and stenosis of unspecified carotid artery (principal)
CPT/HCPCS: 93880

== ENCOUNTER → 2020-01-18 15:41 | Outpatient (CLI) | payer MEDICARE, OTHER, SELFPAY ==
[2020-01-18 14:39] VITALS: BMI 25.5
--- NOTE | 2020-01-18 15:42 | RAD_ITS ---
STUDY: X-RAY CHEST REASON FOR EXAM: Male, 69 years old. DYSPNEA ON EXERTION TECHNIQUE: PA and lateral views of the chest. COMPARISON: None. FINDINGS: The lungs are clear and expanded. There is no demonstrated pleural abnormality. Normal size heart. Normal mediastinum and natasha. Normal visualized pulmonary arteries. Normal visualized aortic arch and descending thoracic aorta. Normal visualized thoracic spine. Normal visualized ribs, clavicles, and shoulders. There is no demonstrated abnormality of the visualized soft tissue structures of the upper abdomen. RAD/Chest PA and Lateral IMPRESSION: Normal x-ray examination of the chest. Electronically Signed: Bertram Mc MD at 16:05 EDT , Service support ,
== END ==
PROVIDERS: PCP Family Medicine; Referring Provider Internal Medicine Cardiovascular Disease; Visit Provider Internal Medicine Cardiovascular Disease
DX: R06.00 Dyspnea, unspecified (principal); I65.23 Occlusion and stenosis of bilateral carotid arteries; Z82.49 Family history of ischemic heart disease and other diseases of the circulatory system
CPT/HCPCS: 71046

== ENCOUNTER → 2020-01-30 06:16 | Outpatient (CLI) | payer MEDICARE, OTHER, SELFPAY ==
[2020-01-18 14:39] VITALS: BMI 25.5
--- NOTE | 2020-01-30 06:16 | ECHOD_ITS ---
Reason For Study: SOB Procedure This was a 2D Doppler, Color Flow transthoracic echocardiogram. The exam was of adequate technical quality. Exam performed in department. Left Ventricle Normal LV size. Left ventricular systolic function is normal. The estimated ejection fraction is 60 %. No evidence for diastolic dysfunction. No regional wall motion abnormalities noted. Right Ventricle Normal RV size. Normal systolic function. Atria Normal left atrium. Normal right atrium. No doppler evidence for ASD. Mitral Valve There is no mitral annular calcification. Normal mitral valve. Mild (1+) mitral valve insufficiency. Tricuspid Valve Normal tricuspid valve. Mild tricuspid valve insufficiency. Right ventricular systolic pressure estimated to be 29 mmHg. Aortic Valve Trisinus/trileaflet aortic valve. Mild focal aortic valve calcification. Pulmonic Valve The pulmonic valve is not well visualized. Mild (1+) pulmonic valve insufficiency. Great Vessels Normal sized aortic root. Pericardium/Pleural No pericardial effusion. MMode/2D Measurements & Calculations LVIDd: 3.8 cm IVSd: 1.3 cm Ao root diam: 3.3 cm LVIDs: 2.6 cm LVPWd: 1.1 cm RVDd: 3.0 cm FS: 30.7 % LAV(MOD-bp): 37.3 ml LA A4 area: 13.6 cm2 LA dimension(2D): 3.3 cm LAV(MOD-bp) Indexed: 20.6 ml/m2 LAV(MOD-sp2): 37.6 ml LAV(MOD-sp4): 33.6 ml RA A4 area: 13.7 cm2 Doppler Measurements & Calculations MV E max suleiman: 80.5 cm/sec Lat Peak E' Suleiman: 9.8 cm/sec Med Peak E' Suleiman: 9.4 cm/sec MV A max suleiman: 63.1 cm/sec E/E' lat: 8.2 E/E' med: 8.5 MV E/A: 1.3 Ao V2 max: 117.5 cm/sec LV V1 max: 81.5 cm/sec PA V2 max: 93.9 cm/sec Ao max P.5 mmHg LV V1 max P.7 mmHg TR max suleiman: 252.4 cm/sec TR max P.5 mmHg Interpretation Summary Left ventricular systolic function is normal. The estimated ejection fraction is 60 %. Mild (1+) mitral valve insufficiency. Mild tricuspid valve insufficiency. Mild focal aortic valve calcification. Mild (1+) pulmonic valve insufficiency. Right ventricular systolic pressure estimated to be 29 mmHg. No evidence for diastolic dysfunction. Ordering Physician: Johnson Sprague Referring Physician: Fer Marcos Performed By: Chelsy Loya RDCS
--- NOTE | 2020-01-30 08:51 | STRESSREP_ITS ---
Stress Test Report Date: 01-30-2020 Procedure: Exercise tolerance test/imaging study Indications: Shortness of breath/dyspnea on exertion, PAD Consent: Per the patient Procedure: The patient exercised on a Roberto Carlos protocol for 8 minutes and 30 seconds completing Stage 2 and 2 minutes and 30 seconds of Stage III achieving a peak heart rate of 144 bpm (94 % predicted maximal heart rate) with a peak blood pressure 198/98 mmHg and a peak MET capacity of 9 METs. The baseline ECG demonstrated sinus bradycardia. The peak exercise ECG demonstrated somatic/motion artifact with no obvious ECG changes. There was a rare PAC and an occasional PVC during exercise and an occasional PAC and rare PVC during recovery. The functional capacity was considered good. There was no complaint of chest discomfort during exercise or recovery. The examination was discontinued secondary to dyspnea. Impression: 1. Technically adequate (percent predicted maximal heart rate greater than 85%) exercise tolerance test 2. Peak exercise ECG with somatic/motion artifact with no obvious ECG changes 3. There was a rare PAC and an occasional PVC during exercise and an occasional PAC and rare PVC during recovery 4. Nuclear images pending Myocardial perfusion imaging study: Technique: The patient was injected with 11.1 mCi of technetium 99m Cardiolite and subsequ ently rest SPECT Cardiolite nuclear imaging was obtained in the horizontal long, vertical long, and short axis views. The patient exercised on a Roberto Carlos protocol for 8 minutes and 30 seconds completing Stage 2 and 2 minutes and 30 seconds of Stage III achieving a peak heart rate of 144 bpm (94 % predicted maximal heart rate) with a peak blood pressure 198/98 mmHg and a peak MET capacity of 9 METs. The patient was injected with 32.5 mCi of technetium 99m Cardiolite and subsequently stress SPECT Cardiolite nuclear imaging was obtained in the horizontal long, vertical long, and short axis views. A gated Cardiolite study at peak stress was obtained. Interpretation: Rest and stress SPECT Cardiolite nuclear imaging status post realignment, normalization, and attenuation correction, demonstrates the appearance of relative uniform tracer uptake and myocardial perfusion appearing within normal limits. There is end systolic thickening and brightening. The gated Cardiolite study demonstrates myocardial thickening and inward wall motion. The reported LVEF is 71 %. Impression: 1. Rest and stress SPECT Cardiolite nuclear imaging demonstrate relative uniform tracer uptake and myocardial perfusion appearing within normal limits. 2. The gated Cardiolite study reports an LVEF of 71 %. This note was generated with [employer] software. It may contain incorrect words, spelling, and punctuation that were not noted in checking the note before signing.
== END ==
PROVIDERS: PCP Family Medicine; Referring Provider Internal Medicine Cardiovascular Disease; Visit Provider Internal Medicine Cardiovascular Disease
DX: R06.00 Dyspnea, unspecified (principal); R06.02 Shortness of breath; I65.23 Occlusion and stenosis of bilateral carotid arteries; Z82.49 Family history of ischemic heart disease and other diseases of the circulatory system
CPT/HCPCS: 78452; 93017; 93306; A9500; A4216

== ENCOUNTER → 2020-04-23 10:13 | Outpatient (CLI) | payer MEDICARE, OTHER, SELFPAY ==
[2020-01-18 14:39] VITALS: BMI 25.5
[2020-04-23 12:28] LABS: Vitamin D,25 Hydroxy 45.1 ng/mL
[2020-04-23 12:43] LABS: ALB/GLOB Ratio 0.9 RATIO (0.9-2.4); AST(SGOT) 32 U/L (15-37); Alanine Aminotransfer ALT/SGPT 40 U/L (16-61); Albumin, Serum 3.6 g/dL (3.2-5.0); Alkaline Phosphatase 83 U/L (45-117); Anion Gap 9 (5-15); BUN 13 mg/dL (7-18); BUN/Creat Ratio 13.1 RATIO (10-20); Chloride 105 mmol/L (98-107); Cholesterol 198 mg/dL (200); EST Glomerular Filtration Rate 79 mL/min (>60); Est Glom Filt Rate - Afr Amer 96 mL/min (>60); Globulin 3.9 g/dL (2.2-4.2); Glucose 98 mg/dL (74-106); High Density Lipoprotein 78 mg/dL; Potassium 4.1 mmol/L (3.5-5.1); Protein, Total 7.5 g/dL (6.4-8.2); Sodium Level 138 mmol/L (136-145); Thyroid Stim Hormone (TSH) 1.51 uIU/mL (0.358-3.74); Triglycerides 120 mg/dL; Very Low Density Lipoprotein 24 mg/dL (5-40)
[2020-04-23 12:44] LABS: PSA,Total- Diagnostic 6.22 ng/mL (0.0-4.0)
== END ==
PROVIDERS: Nurse Practitioner Adult Health; PCP Family Medicine; Referring Provider Family Medicine; Visit Provider Family Medicine
DX: R97.20 Elevated prostate specific antigen [PSA] (principal); I10 Essential (primary) hypertension; E55.9 Vitamin D deficiency, unspecified; I65.29 Occlusion and stenosis of unspecified carotid artery
CPT/HCPCS: 36415; 80053; 80061; 82306; 84153; 84443

== ENCOUNTER → 2020-10-16 11:34 | Outpatient (CLI) | payer MEDICARE, OTHER, SELFPAY ==
[2020-06-27 15:18] VITALS: BMI 25.3
[2020-10-16 15:14] LABS: Absolute Lymphocyte Count 1.22 X10^3/uL (0.83-4.51); Absolute Neutrophil Count 3.6 X10^3/uL (2.0-7.7); Basophil# 0.03 X10^3/uL; Basophil% 0.5 % (0-1); Eosinophil# 0.23 X10^3/uL; Hematocrit 44.5 % (40-54); Hemoglobin 14.5 g/dL (13.0-16.5); Lymphocyte # 1.22 X10^3/ul (0.83-4.51); Mean Corp Hgb Conc 32.6 g/dL (32-36); Mean Corpuscular Hgb 28.9 pg (27.0-32.0); Mean Corpuscular Volume 88.8 fL (80-94); Mean Platelet Vol. 9.8 fl (6.2-12.0); Monocyte# 0.67 X10^3/uL; Monocyte% 11.5 % (0-10); NRBC Flagged by Analyzer 0 % (0-5); Neutrophil # 3.63 X10^3/uL (2.7-7.7); Neutrophil % 62.5 % (47-70); Platelet Count 258 K/mm3 (150-450); RBC Distribution Width CV 12.5 % (11.6-14.6); RBC Distribution Width SD 40.7 fl (35.1-43.9); Red Blood Count 5.01 M/mm3 (4.6-6.2); White Blood Count 5.8 K/mm3 (4.4-11.0)
[2020-10-16 15:34] LABS: AST(SGOT) 30 U/L (15-37); Alanine Aminotransfer ALT/SGPT 32 U/L (16-61); Albumin, Serum 3.6 g/dL (3.2-5.0); Alkaline Phosphatase 64 U/L (45-117); Anion Gap 5 (5-15); BUN 13 mg/dL (7-18); BUN/Creat Ratio 14.3 RATIO (10-20); Calcium,Total 8.8 mg/dL (8.5-10.1); Chloride 106 mmol/L (98-107); Cholesterol 173 mg/dL (200); Creatinine, Serum 0.91 mg/dL (0.70-1.30); EST Glomerular Filtration Rate 88 mL/min (>60); Est Glom Filt Rate - Afr Amer 107 mL/min (>60); Globulin 3.6 g/dL (2.2-4.2); Glucose 86 mg/dL (74-106); High Density Lipoprotein 70 mg/dL; Potassium 4.1 mmol/L (3.5-5.1); Protein, Total 7.2 g/dL (6.4-8.2); Sodium Level 138 mmol/L (136-145); Triglycerides 50 mg/dL; Very Low Density Lipoprotein 10 mg/dL (5-40)
[2020-10-17 08:12] LABS: Vitamin B12 845 pg/mL (211-911); Vitamin D,25 Hydroxy 55.7 ng/mL
== END ==
PROVIDERS: PCP Family Medicine; Referring Provider Family Medicine; Visit Provider Family Medicine
DX: I10 Essential (primary) hypertension (principal); E55.9 Vitamin D deficiency, unspecified; K51.00 Ulcerative (chronic) pancolitis without complications; R97.20 Elevated prostate specific antigen [PSA]
CPT/HCPCS: 36415; 80053; 80061; 82306; 82607; 84153; 85025

== ENCOUNTER → 2020-11-05 | Outpatient (CLI) | payer MEDICARE, OTHER, SELFPAY ==
[2020-06-27 15:18] VITALS: BMI 25.3
[2020-11-05 10:53] LABS: Bacteria 0 SEEN /hpf (None Seen); Mucous, Urine 0 SEEN /hpf (<or=2+); Red Blood Cells-Urine 0 SEEN /hpf (0-5); Squamous Epithelial Cells - UA 0 SEEN /hpf (0-5); White Blood Cells 0 SEEN /hpf (0-5)
[2020-11-05 11:02] LABS: Color, Urine Yellow (Yellow); Glucose, Dipstick Normal (Normal); Ketone-Dipstick Negative (Negative); Leukocyte Esterase-Dipstick Negative /ul (Negative); Nitrite-Dipstick Negative (Negative); Occult Blood-Urine 25 /ul (Negative); Protein-Dipstick Negative (Negative); Urine Bilirubin Dipstick Negative (Negative); Urine Clarity Sl. Cloudy (Clear); Urine Urobilinogen Normal (Normal)
== END | disposition home or self-care (01) ==
LOC: LABSPEC 10:50
PROVIDERS: PCP Family Medicine; Referring Provider Nurse Practitioner Adult Health; Visit Provider Nurse Practitioner Adult Health
DX: R31.21 Asymptomatic microscopic hematuria (principal)
CPT/HCPCS: 81001

== ENCOUNTER → 2020-11-25 10:31 | Outpatient (CLI) | payer MEDICARE, OTHER, SELFPAY ==
[2020-06-27 15:18] VITALS: BMI 25.3
[2020-11-25 09:31] VITALS: BMI 24.8
--- NOTE | 2020-11-25 10:35 | CDU_ITS ---
Reason For Study: CAROTID STENOSIS Rt. Velocities/BP Lt. Velocities/BP Prox CCA 86.9/16.4 cm/sec. Prox CCA 106.2/16.8 cm/sec. Mid CCA 92.1/13.8 cm/sec. Mid CCA 89.8/13.1 cm/sec. Dist CCA 102.5/15.1 cm/sec. Dist CCA 98.9/11.3 cm/sec. Prox ICA 99.9/20.9 cm/sec. Prox ICA 100.7/20.4 cm/sec. Mid ICA 81.8/18.6 cm/sec. Mid ICA 109.8/16.8 cm/sec. Dist ICA 54.1/11.1 cm/sec. Dist ICA 82.4/18.6 cm/sec. Rt. ICA/CCA = 99.9/102.5=1.0. Lt. ICA/CCA = 109.8/106.2=1.0. Prox ECA 185.5/6.7 cm/sec. Prox ECA 111.7/0.0 cm/sec. Rt. Vert. 55.6/12.7 cm/sec. Lt. Vert. 59.5/16.7 cm/sec. Right Extracranial There is intimal thickening but no significant atherosclerotic plaque noted in the right common carotid artery. There is heterogeneous, irregular atherosclerotic plaque noted in the right internal carotid artery. There is homogeneous, smooth atherosclerotic plaque noted in the right external carotid artery. Antegrade flow is noted in the right vertebral artery. Left Extracranial There is homogeneous, smooth atherosclerotic plaque noted in the left common carotid artery. There is heterogeneous, irregular atherosclerotic plaque noted in the left internal carotid artery. There is intimal thickening but no significant atherosclerotic plaque noted in the left external carotid artery. Antegrade flow is noted in the left vertebral artery. Procedure Carotid Duplex 41280. This is a Carotid Duplex examination using B-mode, color flow and specral Doppler. The study was technically difficult. Exam performed in department. VL/Carotid Duplex Ultrasound Interpretation Summary Irregular plaque at the proximal right internal carotid artery with less than 5 0% stenosis Less than 50% stenosis right external carotid artery Irregular calcific plaque in the proximal left internal carotid artery with les s than 50% stenosis Less than 50% stenosis left external carotid artery Patent and antegrade vertebral arteries bilaterally No change from the previous examination of December 07, 2019 Ordering Physician: Fer Marcos Referring Physician: Fer Marcos Performed By: Nereida Márquez, HERNANDEZ, RVT
--- NOTE | 2020-11-25 10:45 | RAD_ITS ---
STUDY: X-RAY CHEST REASON FOR EXAM: Male, 70 years old. For heart cath TECHNIQUE: PA and lateral views of the chest. COMPARISON: Comparison is made with prior study dated 01/18/2020. FINDINGS: There is hyperinflation of the lungs consistent with chronic obstructive lung disease (COPD). There is no demonstrated pleural abnormality. Normal size heart. Normal mediastinum and natasha. There is prominence of the pulmonary hilar arteries without peripheral pulmonary vascular congestion, suggesting pulmonary hypertension. There is atherosclerotic calcification of the aortic arch with tortuosity. There are mild degenerative changes of the visualized thoracic spine. Normal visualized ribs, clavicles, and shoulders. There is no demonstrated abnormality of the visualized soft tissue structures of the upper abdomen. RAD/Chest PA and Lateral IMPRESSION: Hyperinflation. Electronically Signed: Dion Nguyen MD at 10:35 EDT , Service support ,
[2020-11-25 11:43] LABS: Hematocrit 40.3 % (40-54); Hemoglobin 13.4 g/dL (13.0-16.5); Mean Corp Hgb Conc 33.3 g/dL (32-36); Mean Corpuscular Hgb 28.9 pg (27.0-32.0); Mean Corpuscular Volume 86.9 fL (80-94); Mean Platelet Vol. 9.5 fl (6.2-12.0); Platelet Count 236 K/mm3 (150-450); RBC Distribution Width CV 12.5 % (11.6-14.6); RBC Distribution Width SD 39.6 fl (35.1-43.9); Red Blood Count 4.64 M/mm3 (4.6-6.2); White Blood Count 5.8 K/mm3 (4.4-11.0)
[2020-11-25 11:52] LABS: International Normalized Ratio 1.1; Partial Thromboplast Time 28.8 Seconds (24.1-36.2); Prothrombin Time (Protime)PT. 13.9 SECONDS (11.7-14.9)
[2020-11-25 12:12] LABS: Anion Gap 6 (5-15); BUN 13 mg/dL (7-18); BUN/Creat Ratio 13.8 RATIO (10-20); Chloride 105 mmol/L (98-107); Creatinine, Serum 0.94 mg/dL (0.70-1.30); EST Glomerular Filtration Rate 84 mL/min (>60); Est Glom Filt Rate - Afr Amer 102 mL/min (>60); Glucose 87 mg/dL (74-106); Potassium 3.8 mmol/L (3.5-5.1); Sodium Level 141 mmol/L (136-145)
== END ==
PROVIDERS: Internal Medicine Cardiovascular Disease; PCP Family Medicine; Referring Provider Family Medicine; Visit Provider Family Medicine
DX: I65.23 Occlusion and stenosis of bilateral carotid arteries (principal); R07.9 Chest pain, unspecified; Z82.49 Family history of ischemic heart disease and other diseases of the circulatory system
CPT/HCPCS: 36415; 71046; 80048; 85027; 85610; 85730; 93880

== ENCOUNTER 2020-12-13 10:50 | Observation (INO) | payer MEDICARE, OTHER, SELFPAY ==
[2020-11-25 09:31] VITALS: BMI 24.8
[2020-12-12 08:22] VITALS: BMI 24.8
--- NOTE | 2020-12-12 20:09 | PCM.HP.BLA ---
History and Physical Date of Admission: 12/13/20 [facility] [id number] [place], [place] [id number] OFFICE VISITDate of Service: 11/25/20 MR#:[id number]:[id number]: COLETTE HART ARep #:[id number]:[id number] Provider: MICHAEL Arevalo/Sex: 70/M [facility] [facility] HPI HPI History of Present Illness Surgical H&P: Yes Details: This is a 70-year-old gentleman that presents here today for an updated history and physical. He has a history of peripheral vascular disease with carotid artery stenosis. He was in our office in June and had no new complaints. He did call our office last week with concerns over severe heartburn with exercise. This is new for him it starts in his breastbone his hands get numb with it. He did try omeprazole since the end of September this did not help with this. He did have a stress test in January 2020 which is normal. Because of his concerning symptoms he is here today to discuss a diagnostic heart catheterization. His stress test was done d/t strong family hx. He was not having any symptoms prior to that. Pts son states symptoms started after he had seen Dr. Sprague. He started omeprazole in September, this helped with symptoms somewhat. He notes that since starting his Imdur this past week he is feeling somewhat better, he was able to mow the grass without symptoms. He finds that he is more SOB playing tennis over the last few months. He does occasionally have lightheadedness with exertion. He does not have any palpitations. He does not have any syncope. He does not have any claudication. Intake Vital Signs 11/25/20 09:31 Height 5 ft 6 in Weight: 154 lb BMI 24.8 BP 136/73 H Blood Pressure Location Lt brachial Position Sitting Respiration 18 Pulse 94 Pulse Oximetry (%) 96 Intake Visit Reasons: H&P,ekg for cath MATILDA Jasso Bromination Equipment Operator Required: No Accompanied by: None Is patient in pain?: No Allergies Penicillins Allergy (Unknown, Verified 11/25/20 09:30) Unknown Sulfa (Sulfonamide Antibiotics) Allergy (Unknown, Verified 11/25/20 09:30) Unknown clarithromycin [From Biaxin] Adverse Reaction (Severe, Verified 11/25/20 09:30) GI Medications pabivsnn-ihu-hcuoz acid 0.4 mg-lycopene 300 mcg-lutein 250 mcg tablet 1 tab PO DAILY 01/17/20 [History Confirmed 11/25/20] ramipril 5 mg capsule 5 mg PO DAILY 01/17/20 [History Confirmed 11/25/20] tamsulosin 0.4 mg capsule 0.4 mg PO QHS 01/17/20 [History Confirmed 11/25/20] vitamin B complex 1 tab PO DAILY 01/17/20 [History Confirmed 11/25/20] clobetasol 0.05 % topical cream 1 applic TOPICAL DAILY PRN 01/18/20 [History Confirmed 11/25/20] magnesium 200 mg tablet 200 mg PO DAILY 01/18/20 [History Confirmed 11/25/20] omega-3 fatty acids 1,000 mg capsule 1,000 mg PO DAILY 01/18/20 [History Confirmed 11/25/20] escitalopram oxalate 10 mg tablet 10 mg PO DAILY 06/27/20 [History Confirmed 11/25/20] melatonin 5 mg tablet 5 mg PO HS PRN 06/27/20 [History Confirmed 11/25/20] aspirin 81 mg tablet,delayed release 81 mg PO DAILY 11/20/20 [History Confirmed 11/25/20] isosorbide mononitrate 30 mg tablet,extended release 24 hr 30 mg PO DAILY #30 tab 11/20/20 [Rx Confirmed 11/25/20] omeprazole 20 mg capsule,delayed release 20 mg PO DAILY 11/20/20 [History Confirmed 11/25/20] clopidogrel 75 mg tablet 75 mg PO DAILY #30 tab 11/25/20 [Rx Confirmed 11/25/20] nitroglycerin 0.4 mg sublingual tablet 0.4 mg SUBLINGUAL Q5M PRN #25 tab 11/25/20 [Rx Confirmed 11/25/20] [facility] Medical History (Updated 11/20/20 @ 17:56 by Elizabeth Pérez) Anxiety Bilateral carotid artery stenosis Family history of coronary artery disease Surgical History History of choanal atresia History of colectomy History of ileostomy Family History Mother CAD (coronary artery disease) History of coronary artery bypass surgery Brother CAD (coronary artery disease) History of coronary artery bypass surgery Father CVA (cerebral vascular accident) Social History (Updated 06/27/20 @ 15:[address] Johnson Sprague MD) Smoking Status: Never smoker alcohol intake: current details: occasional substance use type: does not use caffeine: Yes Type: coffee Number of servings: 1 ROS Const Const: Positive for fatigue; Negative for weakness, headache(s), frequent falls, excessive sweating, weight gain or weight loss Eyes Eyes: Negative for blind spots, loss of peripheral vision, transient loss of vision, blurry vision, change in vision or double vision ENT ENT: Negative for headache(s), dizziness, tinnitus, Nosebleed/epistaxis or balance problems Cardio Chest Pain: Yes Palpitations: No Edema: None Muscle aches with walking: None Resp Respiratory: Negative for SOB with activity, SOB at rest, SOB orthopnea\SOB lying down or Cough GI GI: Negative nausea, vomiting, heartburn, bloating, vomiting blood/hematemesis, bright, red blood in stools or black,tarry stools : Negative for hematuria Musc Musc: Negative for muscle aches/ myalgia, muscle weakness, joint pain or balance problems Skin Skin: Negative rash or wounds Neuro Neuro: Negative for dizziness, lightheadedness, near syncope, syncope, orthostatic symptoms, frequent falls, headache(s), weakness, confusion, memory loss, restless legs, blurry vision or double vision Gerardo Hematologic/Lymphatic: Negative for easy bleeding or easy bruising Endo Endo: Positive for fatigue; Negative for cold intolerance, heat intolerance or excessive sweating Psych Psych: Negative for anxiety or depression Allergy Allergy/Immunology: Negative for rash Cardiology Exam Const Appearance: cooperative, healthy appearing, comfortable, no acute distress and well developed Orientation: alert, awake and oriented x3 Head Head: normal to inspection Ears: hearing grossly normal bilaterally Nose: external nose normal Face and Sinus: face symmetric Mouth: oral mucosae normal, lip normal and moist mucous membranes Eyes General: appearance normal, both eyes and all related structures Eyelids: eyelids normal Conjunctivae: conjunctivae normal Pupils: PERRL EOM: EOM intact bilaterally Neck Neck: normal visual inspection and trachea midline; Negative no JVD Carotids: Negative bruit Chest Chest inspection: normal inspection of the chest Auscultation: Bilateral: Clear to Auscultation Cardio Palpation: normal PMI Rate: regular rate Rhythm: regular rhythm Heart sounds: S1 normal, S2 normal and murmur; Negative rub or gallop Murmur: Grade 2/6, soft and early systolic GI GI: soft, no hepatosplenomegaly and bowel sounds present Neuro General: patient alert, patient awake, patient oriented x3 and CN's II-XI intact bilaterally Extremities Pulses: Normal: Right Posterior Tibial Pulse, Left Posterior Tibial Pulse, Right Radial Pulse and Left Radial Pulse Lower Extremity Edema: None: Bilateral Psych Psychological: normal affect Assessment and Plan Assessment and Plan (1) Exertional chest pain: Status: Acute Orders: Orders: 12 Lead EKG performed by ELIZABETH 11/25/20 Maryjane - Felecia RODRIGUEZ, PA: Patient's chest discomfort is convincing for angina. Especially since they did improve somewhat with isosorbide. Would like to proceed with a diagnostic heart catheterization as he recently had a negative stress test. Patient is agreeable with this. Patient Instructions: You will need a superintendent drivers, if you have a stent placed placed you will spend the night Nothing to eat or dirnk after midnight In the morning take all your morning medications: ASA, Plavix, omeprazole- with a small sip of water I will call you with the date and time of the heart cath (2) Bilateral carotid artery stenosis: Status: Chronic Comment: Mild per study 12/07/19 Maryjane - Felecia RODRIGUEZ, PA: This will continue to be monitored. Plan Details Other Medications: New: clopidogrel (Plavix) 75 mg PO DAILY 30 tabs 11RF nitroglycerin do not exceed 3 doses per episode 0.4 mg sublingual Q5M PRN 25 tabs 3RF chest pain Follow Up: 1 Month (MMM) COVID (Procedure Consent) Procedure Criteria Procedure Criteria: Yes Elective The surgeon/proceduralist and patient have discussed in detail the risk of exposure to and/or potential harm posed by the COVID-19 virus with having a surgery/procedure at this time versus the risk of delaying the surgery/procedure. It is not possible to know either the risk of delaying the surgery or procedure or chance of getting an infection with perfect accuracy, but a joint decision was made between the patient and the surgeon/proceduralist to proceed at this time with the scheduled surgery/procedure as indicated on the consent form. Coding Level of Care Code Off vis,est,level 4 Diagnoses Exertional chest pain R07.9 Bilateral carotid artery stenosis I65.23 Coding Level of Care Code Off vis,est,level 4 Diagnoses Exertional chest pain R07.9 Bilateral carotid artery stenosis I65.23 Supplemental Info Supplemental Information Carotid artery duplex study: 12-07-2019 Interpretation Summary Mild (<50%) stenosis right extracranial internal carotid. Mild (<50%) stenosis left extracranial internal carotid. Flow within the vertebral arteries is antegrade bilaterally. Echocardiogram: 01-30-2020 Interpretation Summary Left ventricular systolic function is normal. The estimated ejection fraction is 60 %. Mild (1+) mitral valve insufficiency. Mild tricuspid valve insufficiency. Mild focal aortic valve calcification. Mild (1+) pulmonic valve insufficiency. Right ventricular systolic pressure estimated to be 29 mmHg. No evidence for diastolic dysfunction. Stress Test Report Date: 01-30-2020 Procedure: Exercise tolerance test/imaging study Indications: Shortness of breath/dyspnea on exertion, PAD Consent: Per the patient Procedure: The patient exercised on a Roberto Carlos protocol for 8 minutes and 30 seconds completing Stage 2 and 2 minutes and 30 seconds of Stage III achieving a peak heart rate of 144 bpm (94 % predicted maximal heart rate) with a peak blood pressure 198/98 mmHg and a peak MET capacity of 9 METs. The baseline ECG demonstrated sinus bradycardia. The peak exercise ECG demonstrated somatic/motion artifact with no obvious ECG changes. There was a rare PAC and an occasional PVC during exercise and an occasional PAC and rare PVC during recovery. The functional capacity was considered good. There was no complaint of chest discomfort during exercise or recovery. The examination was discontinued secondary to dyspnea. Impression: 1. Technically adequate (percent predicted maximal heart rate greater than 85%) exercise tolerance test 2. Peak exercise ECG with somatic/motion artifact with no obvious ECG changes 3. There was a rare PAC and an occasional PVC during exercise and an occasional PAC and rare PVC during recovery 4. Nuclear images pending Myocardial perfusion imaging study: Technique: The patient was injected with 11.1 mCi of technetium 99m Cardiolite and subsequently rest SPECT Cardiolite nuclear imaging was obtained in the horizontal long, vertical long, and short axis views. The patient exercised on a Roberto Carlos protocol for 8 minutes and 30 seconds completing Stage 2 and 2 minutes and 30 seconds of Stage III achieving a peak heart rate of 144 bpm (94 % predicted maximal heart rate) with a peak blood pressure 198/98 mmHg and a peak MET capacity of 9 METs. The patient was injected with 32.5 mCi of technetium 99m Cardiolite and subsequently stress SPECT Cardiolite nuclear imaging was obtained in the horizontal long, vertical long, and short axis views. A gated Cardiolite study at peak stress was obtained. Interpretation: Rest and stress SPECT Cardiolite nuclear imaging status post realignment, normalization, and attenuation correction, demonstrates the appearance of relative uniform tracer uptake and myocardial perfusion appearing within normal limits. There is end systolic thickening and brightening. The gated Cardiolite study demonstrates myocardial thickening and inward wall motion. The reported LVEF is 71 %. Impression: 1. Rest and stress SPECT Cardiolite nuclear imaging demonstrate relative uniform tracer uptake and myocardial perfusion appearing within normal limits. 2. The gated Cardiolite study reports an LVEF of 71 %. Labs: LDL Cholesterol 93 mg/dL (0-130) HDL Cholesterol 70 mg/dL (40-) Triglycerides 50 mg/dL (-199) VLDL Cholesterol 10 mg/dL (5-40) Diagnostics: Electrocardiogram Echocardiogram Stress Test NM Stress Test Chest X-Ray Pulmonary: No Data to Display 11/26/20 [id number]<Electronically signed by Felecia RODRIGUEZ>Date Felecia RODRIGUEZ Cosigner Signature:Date (if applicable) CC: Dr. Fer Marcos MD ~ I have re-examined the patient. There are no clinical changes since date of exam.
--- NOTE | 2020-12-13 09:36 | CL.D_ITS ---
Patient Name: COLETTE HART Study Date: 12/13/2020 Performing: Johnson Sprague MD Ht: 66.14 inches 168 cm : 1950 Wt: 154.32 lbs 70 kg Age: 70 Gender: male BSA: 1.79 PROCEDURE(S) PERFORMED [id number]/COR/LV CLINICAL PROFILE AND INDICATIONS Indications: Worsening Angina, Suspected CAD Heart Failure: None Stress/Imaging Date: 01/29/2021 Angina Classification Anginal Classification w/in 2 Weeks: CCS III CAD Presentations: Stable angina. CONCLUSIONS Elevated Left Ventricular End Diastolic Pressure (mild) Normal LV size, wall motion,and systolic function LVEF: by LV gram 65 % [place] Multivessel CAD RECOMMENDATIONS Risk factor modification Medical therapy Surgery consult for coronary revascularization Case discussed / reviewed with Dr. Jessika Bartlett of Interventional Cardiology DESCRIPTION OF PROCEDURE The patient arrived to the procedure lab. The risks and benefits of the procedure as well as a full d escription of our services here and current unavailability of surgical backup were fully explained to the patient and/or their significant other prior to the catheterization. The Timeout was completed, verifying the correct patient and procedure. The patient's procedural site was prepped and draped in the usual fashion. Local anesthetic was given subcutaneously to right radial region with Lidocaine 2% . Using a modified Seldinger technique, arterial access was obtained via the right radial artery, a 6 Fr sheath was inserted. Right Coronary Artery selective angiography was then performed in multiple v iews using a 5 Fr. 4.0 [place] catheter. Left Coronary Artery selective angiography was performed in mu ltiple views using a 5 Fr. JL3.5 catheter. Left Ventriculography was performed in KRAUSE projection usin g a 5 Fr. Pigtail catheter. LV to AO pullback pressures were then recorded.The arterial sheath was pulled and a TR Band was applied for hemostasis w/ 15ml air CORONARY ANGIOGRAPHY DOMINANCE: Right Dominant LEFT HEART ASSESSMENT Left Ventricular Ejection Fraction: by LV Gram 65 % Normal LV wall motion Elevated Left Ventricular End Diastolic Pressure LVEDP: 14 mmHg LEFT MAIN: short: bifurcating vessel, eccentric: 25 % Stenosis LEFT ANTERIOR DESCENDING ARTERY: PROX LAD: diffuse: eccentric: 25 % Stenosis MID LAD: 95 % Stenosis, 25 - 50 % Stenosis DIAGONAL 1: Proximal - eccentric:75 % Stenosis CIRCUMFLEX ARTERY: OSTIAL CIRC: 75 % Stenosis MID CIRC: Mild luminal irregularities RIGHT CORONARY ARTERY: MID RCA: Mild luminal irregularities AORTIC ROOT: Angiographically normal COMPLICATIONS No Complications PROCEDURE MEDICATIONS Versed 1 mg IV Fentanyl 50 mcg IV Oxygen: 2 L/min via nasal cannula Heparin given IA 12/13/2020 08:14:40 Verapamil 2.5mg, Ntg 100mcgs, 3000 units of Heparin given IA 12/13/2020 08:14:40 SUMMARY OF HEMODYNAMIC DATA Time AIR REST ECG 07:18:54 AO 129/65 (93) SA 08:17:15 LV 160/-11, 11 08:27:09 LV 163/-12, 14 08:27:15 LV 159/-9, 16 08:28:01 LV 154/-9, 16 08:28:07 LVp 152/-11, 15 08:28:11 AOp 155/65 (97) 08:28:16 Signed By Johnson Sprague MD On 12/13/2020 09:35:59 Johnson Sprague MD
--- NOTE | 2020-12-13 10:50 | CT_ITS ---
STUDY: CT CHEST WITHOUT CONTRAST REASON FOR EXAM: Male, 70 years old. CAD; pre CABG evaluation RADIATION DOSAGE (If Supplied By Facility): CTDIvol = ( 10.24 ) mGy, DLP = ( 363.19 ) mGycm TECHNIQUE: Transaxial imaging was performed without the administration of intravenous contrast material. Individualized dose optimization techniques were used for this CT. COMPARISON: None. FINDINGS: The lungs are normal. There is no demonstrated pleural abnormality. Normal heart and pericardium. Microcalcifications noted in the coronary arteries. There are multiple lymph nodes seen in the pretracheal area the largest measures 2 x 1.5 cm. Normal hilar regions. Normal unenhanced pulmonary arteries. Normal aorta arch and descending thoracic aorta. Normal osseous structures. There is no demonstrated abnormality of the visualized upper abdomen. CT/Chest without Contrast IMPRESSION: Pretracheal lymph nodes as mentioned above the rest of the study is negative. Electronically Signed: Alex Lincoln, at 11:26 EDT Tel , Service support ,
[2020-12-13 12:35] VITALS: PULSE 67
[2020-12-13 12:45] VITALS: BP 104/61; PULSE 67; RESP 15; TEMP 36.8; O2SAT 97
[2020-12-13 13:47] LABS: International Normalized Ratio 1.1; Prothrombin Time (Protime)PT. 13.5 SECONDS (11.7-14.9)
[2020-12-13 13:48] LABS: Partial Thromboplast Time 27.5 Seconds (24.1-36.2)
[2020-12-13] MEDS: 0.9% Normal Saline 1,000 ML 75 ML IV (14:25)
[2020-12-13] MEDS: HEPARIN/D5w 25,000 UNITS 25,000 UNITS/250 ML IV.SOLN. 10 UNITS IV (14:26)
[2020-12-13] MEDS: Heparin Injection (Vial) 5,000 UNIT/ML VIAL IV (14:54)
[2020-12-13 16:51] VITALS: BP 142/63; PULSE 65; RESP 15; TEMP 36.3; O2SAT 100
[2020-12-13 17:02] VITALS: PULSE 74
--- NOTE | 2020-12-13 17:35 | NURSING ---
Report called to MANI Smith at [facility].
== END 2020-12-13 18:46 | disposition short-term general hospital (02) ==
LOC: CLSP 11:56 → PCU 12:37
PROVIDERS: Admitting Provider Internal Medicine Cardiovascular Disease; PCP Family Medicine; Referring Provider Internal Medicine Cardiovascular Disease; Visit Provider Internal Medicine Cardiovascular Disease
DX: I25.118 Atherosclerotic heart disease of native coronary artery with other forms of angina pectoris (principal); I73.9 Peripheral vascular disease, unspecified; F41.9 Anxiety disorder, unspecified; I65.23 Occlusion and stenosis of bilateral carotid arteries; Z79.82 Long term (current) use of aspirin; Z79.899 Other long term (current) drug therapy; Z79.02 Long term (current) use of antithrombotics/antiplatelets; Z82.49 Family history of ischemic heart disease and other diseases of the circulatory system
CPT/HCPCS: 71250; 85610; 85730; 87426; 93458; 96365; 96376; 99152; 99153; J7030; J7040; Q9967; C1769; C1894

== ENCOUNTER → 2021-01-10 12:02 | Outpatient (CLI) | payer MEDICARE, OTHER, SELFPAY ==
[2020-12-12 08:22] VITALS: BMI 24.8
[2021-01-10 15:02] LABS: Absolute Lymphocyte Count 0.66 X10^3/uL (0.83-4.51); Absolute Neutrophil Count 5.6 X10^3/uL (2.0-7.7); Basophil# 0.11 X10^3/uL; Basophil% 1.4 % (0-1); Eosinophil# 0.93 X10^3/uL; Eosinophils% 11.4 % (0-5); Hematocrit 35.1 % (40-54); Hemoglobin 11.1 g/dL (13.0-16.5); Lymphocyte # 0.66 X10^3/ul (0.83-4.51); Lymphocyte % 8.1 % (19-41); Mean Corp Hgb Conc 31.6 g/dL (32-36); Mean Corpuscular Hgb 29.6 pg (27.0-32.0); Mean Corpuscular Volume 93.6 fL (80-94); Mean Platelet Vol. 9.4 fl (6.2-12.0); Monocyte# 0.82 X10^3/uL; Monocyte% 10.1 % (0-10); NRBC Flagged by Analyzer 0 % (0-5); Neutrophil # 5.56 X10^3/uL (2.7-7.7); Neutrophil % 68.3 % (47-70); Platelet Count 405 K/mm3 (150-450); RBC Distribution Width CV 15.4 % (11.6-14.6); RBC Distribution Width SD 52.8 fl (35.1-43.9); Red Blood Count 3.75 M/mm3 (4.6-6.2); White Blood Count 8.1 K/mm3 (4.4-11.0)
[2021-01-10 15:18] LABS: ALB/GLOB Ratio 0.9 RATIO (0.9-2.4); AST(SGOT) 24 U/L (15-37); Alanine Aminotransfer ALT/SGPT 38 U/L (16-61); Albumin, Serum 3.2 g/dL (3.2-5.0); Alkaline Phosphatase 104 U/L (45-117); Anion Gap 5 (5-15); BUN 12 mg/dL (7-18); BUN/Creat Ratio 10.3 RATIO (10-20); Calcium,Total 9.1 mg/dL (8.5-10.1); Chloride 105 mmol/L (98-107); Creatinine, Serum 1.17 mg/dL (0.70-1.30); EST Glomerular Filtration Rate 66 mL/min (>60); Est Glom Filt Rate - Afr Amer 79 mL/min (>60); Globulin 3.7 g/dL (2.2-4.2); Glucose 88 mg/dL (74-106); Magnesium 2.1 mg/dL (1.6-2.6); Potassium 4.5 mmol/L (3.5-5.1); Protein, Total 6.9 g/dL (6.4-8.2); Sodium Level 138 mmol/L (136-145)
== END ==
PROVIDERS: PCP Family Medicine; Referring Provider Family Medicine; Visit Provider Family Medicine
DX: I97.89 Other postprocedural complications and disorders of the circulatory system, not elsewhere classified (principal)
CPT/HCPCS: 36415; 80053; 83735; 85025

== ENCOUNTER → 2021-01-14 11:29 | Outpatient (CLI) | payer MEDICARE, OTHER, SELFPAY ==
[2020-12-12 08:22] VITALS: BMI 24.8
--- NOTE | 2021-01-14 12:46 | STRESSREP ---
Stress Test Report Date: 01-15-2020 Procedure: Exercise tolerance test Indications: CAD; CABG; precardiac rehabilitation evaluation Consent: Per the patient Procedure: The patient exercised on a Roberto Carlos protocol for 7 minutes and 15 seconds completing Stage II and 1 minute and 15 seconds of Stage III achieving a peak heart rate of 126 bpm (83% predicted maximal heart rate) with a peak blood pressure 156/68 mmHg and a peak MET capacity of approximately 9 MET's. The baseline ECG demonstrated sinus rhythm. The peak exercise ECG demonstrated no obvious ECG changes. There were no cardiac dysrhythmias pretest, during exercise, or recovery. The functional capacity was considered good. The patient had no complaint of chest discomfort during exercise or recovery. The examination was discontinued secondary to dyspnea. Impression: 1. Technically inadequate (percent predicted maximal heart rate less than 85%) exercise tolerance test 2. Peak exercise ECG with no obvious ECG changes 3. There were no cardiac dysrhythmias during exercise or recovery This note was generated with [email or web address] software. It may contain incorrect words, spelling, and punctuation that were not noted in checking the note before signing.
== END ==
PROVIDERS: PCP Family Medicine; Referring Provider Internal Medicine Cardiovascular Disease; Visit Provider Internal Medicine Cardiovascular Disease
DX: I25.10 Atherosclerotic heart disease of native coronary artery without angina pectoris (principal); Z95.1 Presence of aortocoronary bypass graft
CPT/HCPCS: 93017

== ENCOUNTER → 2021-01-24 12:54 | Outpatient (CLI) | payer MEDICARE, OTHER, SELFPAY ==
[2020-12-12 08:22] VITALS: BMI 24.8
--- NOTE | 2021-01-24 12:58 | CR.ITP_ITS ---
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 Personal Learning Style:: Audio/Visual, Written Barriers to Learning: Vision Impairment Stage of change r/t lifestyle modifications:: Action Gave educational material for:: Treating Heart Disease, Emotions & Heart Disease, Stress Management & Relaxation, Sleep Disorders & Heart Disease, How The Heart Works, What it means to have Heart Disease, How Coronary Artery Disease is Diagnosed, Heart Procedures, What Heart Medications Do, Risk Factors & Modifications, Living an Active Life, Nutrition - Education/Goals Individual Counseling: Initial Assessment: Abnormal Cholesterol Levels, High Blood Pressure Cardiac Rehabilitation Goals: 1. Maintain the individual as the primary focus of care. 2. To improve the patient's quality of life. 3. Identification of cardiac risk factors and provide cardiac risk factor management. 4. Enhance the psychosocial status of the patient. 5. Reconditioning enough to allow the patient to resume customary activities. 6. Control symptoms of cardiac disease Personal Goals: Initial Assessment: Improve energy level, Participate in home exercise program, Get back to work, or to resume activities faster, Improve knowledge of cardiac disease, Improve muscle strength and endurance, Improve diet and eating habits (eat healthier), Control risk factors (learn risk factor modification) Scale for measuring improvement of personal goals: Enter appropriate number in Comments. 2 = Unchanged. 3 = Slightly Better. 4 = Moderate Improvement. 5 = Met my Goal - Diagnosis & Disease Process Outcomes/Goals: Pt IDs own risk factors & lifestyle modifications by Session 10, Verbalizes symptoms of angina & response by session 3., Pt independently manages Plan/Interventions: Assist Pt to ID & engage in lifestyle modification to reduce CVD risk, Instruct on individual risk factors, Review symptoms of angina & emergency actions, Review secondary diagnosis & identify educational needs. - Safety Referral to Physical Therapy: No Referral to [facility] Case Management: No Fall Risk Assessed:: Yes Assistive Devices:: None Exercise - Initial Assessment - Visit Date of Eval: 01/24/21 Session #:: 0 - PRE-CARDIAC REHAB EVALUATION Mets: Pre-: >7 METS for 30 minutes by discharge - Stress Test Date: 01/14/21 Protocol:: FELY Resting HR (bpm):: 65 Maximum HR (bpm):: 126 Blood Pressure: 128/62 Maximum Blood Pressure: 148/52 MET LEVEL:: 8.90 EKG: SINUS RHYTHM WITH NO CARDIAC DYSRHYTHMIAS. - Physician Prescribed Exercise Modalities: Treadmill, Airdyne, NuStep Frequency: 3x/week for 12 weeks [36 sessions] Intensity: 60-80% maximum heart rate reserve from GXT Current METSs:: 4.0 Target Heart Rate:: 126-151 Maximum Excercise HR:: 126 - Outcomes & Goals Goals:: Verbalizes understanding of THR, RPE & goal METS by session 6, Documents in home exercise log/reports 30 min aerobic 5 day/wk by DC, Demonstrates accu rate pulse taking by DC - Intervention & Plan Exercise Program Goals: Instruct on personal THR & RPE, Instruct on MET level & personal MET goal, Show patient to take own pulse /validate performance until accurate, Instruct on home exercise - Physical Activity Home Exercise Physical Activity - Home Exercise: Safe Exercise, Warm-up, Self-monitoring, Cool-Down, Home Exercise > 30 min Daily, Sitting Time <3 hours/daily - Outcomes & Goals Outcomes/Goals: Demonstrates correct Warm-up/exercise Cool-Down (S3) if = 2.5 METs, Verbalizes symptoms of exercise intolerance by Session 3 (S3), Demonstrate safe equipment use (S3) & follows exercise prescrition (6) - Intervention & Plan Plan/Intervention: Instruct warm-up & cool-down if exercising at > 2 METs, Instruct on symptoms of exercise intolerance & actions to take, Instruct & monitor on saf, Assess intial functional capacity & safety risk Nutrition - Initial Assessment - Program Goals Nutrition Program Goals: LDL <100 optimal. 100 - 129 Near optimal. 130 - 159 Borderline High. 160 - 189 High. Total Cholesterol <200 desirable. 200 - 239 Borderline High. >/= 240 High. HDL < 40 Low >/=60 High. Triglycerides <150 d esirable. <199 optimal. VlDL 5 - 40. HgbA1C <7%. BMI <25 Patient has diagnosis of Hyperlipidemia (ICD E78)?: Yes - Visit Date of Assessment:: 01/24/21 Session #:: 0 - PRE-CARDIAC REHAB EVAULATION - Cholesterol/Lipids Triglycerides (mg/dL): 50 - 10/16/2020 Total Cholesterol (mg/dL): 173 LDL Cholesterol (mg/dL): 93 HDL Cholesterol (mg/dL): 70 Determine presence & major risk factors that modify LDL goal: Hypertension or hypertensive medication, Age men > 45 years; women >/= 55 years Outcomes/Goals: Pt IDs own risk factors & lifestyle modifications by Session 10, Verbalizes symptoms of angina & response by session 3., Pt independently manages Intervention/Plan: Instruct on personal lipid levels & lipid goals/NCEP guidelines, Instruct on cholesterol Referral to dietitian:: Yes - MEDICAL NUTRITION THERAPY - Diabetes (Other Core Measures) Diabetes Type: Not Applicable - Weight Mgt (Other Care) Not Applicable: Yes Height: 5 ft 6 in Weight:: 158 lb BMI: 25.4 Diagnosis Overweight/Obesity BMI> 30% ICD-10 E66: No Diagnosis High BMI/Morbid Obesity BMI> 35% ICD-10 Z68: No Outcomes/Goals: Pt sets, maintains & shows weight loss goal & trend during rehab Intervention/Plan: Instruct on ideal BMI & set weight loss goal w/patient - Healthy Eating Habits Will attend diet classes:: Yes Outcomes/Goals:: Consume diet rich in vegs,fruits,whole grain/high fiber,fish,lean meat, Limit sat/trans fats,cholesterol & added salts & sugars Intervention/Plan:: Assess current eating habits - Education Gave educational materials for:: Healthy eating Nutrition - 30-Day Assessment Nutrition - 60-Day Assessment Nutrition - 90-Day Assessment Nutrition - Final Assessment Medical - Initial Assessment - Visit Date of Eval: 01/24/21 Session #:: 0 - PRE-CARDIAC REHAB EVALUATION - Medication Compliance Preventative Medication(s):: Aspirin, DAMASO inhibitor, Statin/lipid, Beta ashlee H/O mental health issues: depression, anxiety, or addiction?: Yes Doesn?t believe in the benefits of treatment?: No Believes medications are unnecessary or harmful?: No Has a concern about medication side effects?: No Expresses concern over the cost of medications?: No Outcomes/Goals: Verbalizes medications,desired effect & common side effects @ DC, Pt self-reports following medication regimen, Keeps card in wallet w/medications listed by DC Interventions/plans: Instruct on medication effects & side effects, Review medication list w/patient every two weeks, Instruct importance of taking meds as ordered & assist problem solving - Tobacco Use Tobacco Use: Non-smoker - Hypertension Hypertension Diagnosis:: Hypertension ICD-10 I10 Resting Blood Pressure:: 104/58 [employer] Hypertension Guidelines: [employer] Hypertension Guidelines. Normal BP Less than 120/80. Elevated BP 120/80. Hypertension Stage 1: BP 130-139/80-89. Hypertesnion Stage 2: BP 140 or higher/90 or higher. Hypertension Crisis: BP higher than 180/120 Peak Exercise Blood Pressure:: 156/68 Outcomes/Goals: Able to verbalize/achieve optimal blood pressure <130/80, Incorporates diet changes & exercise for blood pressure control by DC Interventions/plan: Instruct on optimal blood pressure, hypertension & medications, Instruct on effects of sodium, alcohol, stress, exercise &hypertension - Tobacco Cessation Referral Smoking Cessation Referral:: No Individual Education/Counseling:: No Education Schedule Given:: Yes Medical- 30-Day Assessment Medical- 60-Day Assessment Medical- 90-Day Assessment Medical - Final Assessment Psychosocial - Initial Assess - VIsit Date of Eval: 01/24/21 Session #:: 0 - PRE-CARDIAC REHAB EVALUATION Not Applicable: No History of previous Mental disease:: Yes History of Emotional Disorders: Anxious - Psychosocial Test Tool Used:: [employer] Power QOL Cardiac, PHQ-9 Questionnaire phq-9 Severity: Severity. 1-4 Minimal Depression. 5-9 Mild Depression. 10-14 Moderate Depression. 15-19 Moderately Sever Depression. 20-27 Severe Depression. Rule: - Referral to Behavioral Health PS - Interventions: Yes Attend Stress Management Classes, No Referral to Behavioral Health if PHQ-9 score >9:, No Referral to [facility], No Referral to Physician if PHQ-9 if score is 5-9: - Outcomes/Goals: See list Psychosocial Outcomes/Goals:: ID's personal stressors & 2 strategies to manage stress by discharge - Intervention/Plan: See List Interventions/Plan:: Assess stressors,coping strategies & signs of derpression on admission, Instruct/assist pt to develop coping & personal stress Mgt strategies, Instruct patient to recognize signs & symptoms of depression, Instruct patient to recog Psychosocial - 30-Day Assess Psychosocial - 60-Day Assess Psychosocial - 90-Day Assess Psychosocial - Final Assessmen Patient Health Questionnaire Initial Assessment 1. Little interest or pleasure in doing things: Not at all 2. Feeling down, depressed, or hopeless: Several days 3. Trouble falling or staying asleep, or sleeping too much: More than half the days 4. Feeling tired or having little energy: Several days 5. Poor appetite or overeating: Several days 6. Feeling bad about yourself -- or that you are a failure or have let yourself or your family down: Not at all 7. Trouble concentrating on things, such as reading the newspaper or watching television: Not at all 8. Moving or speaking so slowly that other people could have noticed. Or the opposite - being so fidgety or restless that you have been moving around a lot more than usual: Not at all 9. Thoughts that you would be better off , or of hurting yourself in some way: Not at all How difficult have these problems made it for you to do your work, take care of things at home, or get along with other people?: Not difficult at all Total Score: 5 PAIGE-Q SV Test - Statements CAD is a disease of the arteries in the heart: False Examples of risk factors for heart disease: True Angina is chest pain or discomfort: True The benefits of resistance training include: True Eating more meat and dairy products: False Anti-platelet medications such as aspirin are important: True The only effective way to manage stress: False An exercise warm-up slowly increases heart rate: True Prepared, processed foods usually have high sodium: True Depression is common after a heart attack: True The statin medications lower cholesterol: True To control blood pressure, lower the amount of sodium: True If someone gets chest discomfort during walking: False Transfats are partially hydrogenated vegetable oils: False Sleep apnea that is not treated increases the risk: I Don't Know To control cholesterol, one should become a vegetarian: False Someone knows if he/she is exercising at the right level: True Diabetes cannot be prevented with exercise & health eating: False Stress is a large risk for heart attack: True A diet that can help lower blood pressure is rich in: True - Total Score Total Correct Responses: 18 Self-Efficacy Initial Assessment We would like to know how confident you are in doing certain activities. Please select your confidence level for:: Select your confidence level for the following using the scale 1-10 where 1 is not at all confident and 10 is totally confident. Your score is the average of all 6 responses. Fatigue: How confident are you that you can keep the fatigue caused by your disease from interfering with the things you want to do? Select Number: 6 Physical Discomfort or Pain: How confident are you that you can keep the physical discomfort or pain of your disease from interfering with the things you want to do? Select Number: 8 Emotional Distress: How confident are you that you can keep the emotional distress caused by your disease from interfering with the things you want to do? Select Number: 9 Other Symptoms or Health Problems: How confident are you that you can keep other symptoms or health problems from interfering with the things you want to do? Select Number: 7 Different Tasks and Activities: How confident are you that you can do the different tasks and activities needed to manage your health condition so as to reduce your need to see a doctor? Select Number: 9 Medication: How confident are you that you can do things other than just taking medication to reduce how much your illness affects your everyday life? Select Number: 8 Total Score:: 7 Nutrition Survey - Nutrition Survey Initial Have you lost >10 lbs over the past 2 months without trying?: No Are you following a special diet at home for diabetes, low fat, or low salt?: Yes Are you interested in meeting with a dietitian for help understanding your diet?: Yes Do you eat less than 3 meals a day?: No Do you eat fatty meats (cobb, sausage, ribs, etc), fried foods, desserts, large amounts of salad dressings, margarine, butter, or cheese most days?: No Do you have food allergies? [Enter types in comment field]: No Do you eat in restaurants more than 3 times a week?: No Do you season food with salt, seasoning salt, or garlic salt?: No Do you used canned, boxed, frozen meals, or soups, seasoning packets?: Yes - PATIENT IS INTERESTED IN MEDICAL NUTRITION THERAPY. Total Score:: 3
--- NOTE | 2021-01-24 12:59 | CR.HP_ITS ---
CR - History & Physical - General Arrival date:: 01/24/21 Arrival time:: 13:02 Date of Referral:: 01/08/21 Date of CR Evaluation:: 01/24/21 Referring Physician: DR. VAN LOPEZ Primary Diagnosis: S/P CABG - History of Present Cardiac Event Onset Date: Enter Onset Date of cardiac illnesses in Comment field below Coronary Artery Bypass Graft:: Yes - 12/20/2020 Type of Symptoms:: FIRST OF THE YEAR AFTER PLAYING TENNIS BEGING WALKING AFTER 6 MINUTES BEGIN HAVING SEVERE CHEST BURN. THEN AFTER ABOUT 10 MINUTES OF PLAYING TENNIS ONE DAY REALLY SEVERE AND HAD TO REST FOR ABOUT 10 MINTUES BEFORE IT EASE UP. Interventions with present event:: EVALUATED BY DR. LOPEZ AND SENT TO [facility] [place] 3-VESSEL BYPASS Were there any complications?: POST OPERATIVE ATRIAL FIBRILLATION NOW IN SINUS RHYTHM. - Sleep Disorder Evaluation Hx of Sleep Apnea: No Do you snore loudly (louder than talking or can be heard through closed doors)?: No Do you often feel tired/ fatigued/ sleepy during daytime?: No - SOME SINCE THE SURGERY, BUT GETTING BETTER Has anyone observed you stop breathing during sleep?: No History of Hypertension (for STOP score): Yes STOP Results: Negative - Medications Home Medications: Ambulatory Orders Medication Instructions Recorded omxnidzd-vsv-elcem acid 0.4 1 tab PO DAILY 01/17/20 mg-lycopene 300 mcg-lutein 250 mcg tablet tamsulosin 0.4 mg capsule 0.4 mg PO QHS 01/17/20 clobetasol 0.05 % topical cream 1 applic TOPICAL DAILY 01/18/20 melatonin 5 mg tablet 5 mg PO HS PRN 06/27/20 aspirin 81 mg tablet,delayed 81 mg PO DAILY 11/20/20 release nitroglycerin 0.4 mg sublingual 0.4 mg SUBLINGUAL Q5M PRN #25 tab 11/25/20 tablet acetaminophen 325 mg capsule 650 mg PO Q4H PRN cap 12/24/20 amlodipine 5 mg tablet 5 mg PO DAILY 12/24/20 apixaban 5 mg tablet 5 mg PO BID 12/24/20 atorvastatin 80 mg tablet 80 mg PO QHS 12/24/20 evening primrose oil 500 mg capsule 500 mg PO DAILY cap 12/24/20 amiodarone 400 mg tablet 400 mg PO .COMPLEX 12/27/20 bismuth subsalicylate 262 mg tablet 2 tab PO Q30-60M PRN 12/27/20 ciprofloxacin HCl 250 mg tablet 250 mg PO BID tab 12/27/20 diphenhydramine 25 1 tab PO QHS PRN 12/27/20 mg-acetaminophen 500 mg tablet escitalopram oxalate 5 mg tablet 5 mg PO DAILY 12/27/20 loperamide-simethicone 2 mg-125 mg 1 tab PO Q3H PRN 12/27/20 tablet metoprolol tartrate 25 mg tablet 25 mg PO TID tab 12/27/20 oxycodone 5 mg tablet 5 mg PO Q6H PRN tab 12/27/20 - Allergies Allergies/Adverse Reactions: Allergies Penicillins Allergy (Unknown, Verified 12/27/20 09:14) Unknown Sulfa (Sulfonamide Antibiotics) Allergy (Unknown, Verified 12/27/20 09:14) Unknown clarithromycin [From Biaxin] Adverse Reaction (Severe, Verified 12/27/20 09:14) GI Advanced Directives - Advanced Directives Power of Dental Appliance Fixer: Yes Living Will: Yes Advance Directives Information Provided: No Advance Directives on File: Yes DNR Order?:: No - MOLST See MOLST form: No Past Medical History - Covid-19 Screening Fever: No Unexplained muscle aches: No Current respiratory symptoms: No Upper respiratory infections symptoms: No Gastro-intestinal symptoms: No Nfn-Ejgb-Bntcvs symptoms: No Has tested positive for COVID-19 in last 30 days: No Date of testin12/20/20 - HAD THE COVID-19 VACCINE MODERNA Had contact w/person w/symptoms or Covid-19 (+) last 14 days: No Has High Risk Exposures ID'd by Health dept/Inf Control team: No 65 years or older:: Yes Lives in Assisted Living facility:: No Has a chronic lung disease or moderate to severe asthma:: No Has a serious heart condition:: Yes Immunocompromised:: No Severely obese (Body Mass Index of 40 or higher):: No Diabetic:: No Has chronic kidney disease undergoing dialysis:: No Has liver disease:: No - Past Medical Illness Medical History: Past Medical History (Last Reviewed 12/27/20 @ 09:26 by Jessy Lovelace) Anxiety F41.9 Atherosclerotic heart disease of [place] coronary artery without angina pectoris I25.10 Bilateral carotid artery stenosis I65.23 Mild per study 12/07/19 CAD (coronary artery disease) I25.10 Family history of coronary artery disease Z82.49 Postoperative atrial fibrillation I97.89, I48.91 - Past Surgical History Surgical History: Past Surgical History (Last Reviewed 12/27/20 @ 09:26 by Jsesy Lovelace) History of choanal atresia History of colectomy Z90.49 History of coronary artery bypass graft x 3 Onset Date: ~12/20/20 Z95.1 CABG x3- NAVARRO to LAD, Radial Artery to OM, SVG to Diagonal Artery 12/20/20 @ [facility] History of ileostomy Z98.890 History of left heart catheterization (LHC) Onset Date: ~12/13/20 Z98.890 LEFT MAIN: short: bifurcating vessel, eccentric: 25 % Stenosis; LEFT ANTERIOR DESCENDING ARTERY: PROX LAD: diffuse: eccentric: 25 % Stenosis, MID LAD: 95 % Stenosis, 25 - 50 % Stenosis; DIAGONAL 1: Proximal - eccentric:75 % Stenosis; CIRCUMFLEX ARTERY: OSTIAL CIRC: 75 % Stenosis, MID CIRC: Mild luminal irregularities; RIGHT CORONARY ARTERY: MID RCA: Mild luminal irregularities; AORTIC ROOT: Angiographically normal: RECOMMENDATIONS: Surgery consult for coronary revascularization per cardiac cath 12/13/20 - Family History Summary Family History: Family History (Last Reviewed 12/27/20 @ 09:26 by Jessy Lovelace) Mother CAD (coronary artery disease) History of coronary artery bypass surgery Brother CAD (coronary artery disease) History of coronary artery bypass surgery Father CVA (cerebral vascular accident) Social History - Smoking History Smoking Status: Never smoker Hx Tobacco Use: No Hx Smoking Exposure: No - - Alcohol Use Alcohol Usage: Yes - CURRENT ALCOHOL USE OCCASIONAL - Substance Abuse Hx Substance Use: No - Occupation Occupation (List type of work in comments):: Retired - Hobbies, Recreation, Social Activities Hobbies: Sports - TENNIS, SWIMMING, Other - [employer] Recreational Activities: I am able to engage in most, but not all activities Social Environment - Status Marital Status: - Current Living Arrangements Living Environment:: Spouse - Children How many children do you have?: 3 Do any of your children live nearby?: Yes - SOME LOCAL, SOME OUT OF STATE - Safety Do you feel safe in your surroundings?: Yes - Assistance Do you need any assistance at home?: NO Review of Systems - Review of Systems Hints: Right click = Denies (Slash). Left click = Reports ([place]) Review of Present Symptoms: Reports: Shortness of Breath with Exertion - VERY MINOR, Dizziness/Lightheadedness, Fatigue, Heart Arrhythmia/Irregularities - POSTOPERATIVE ATRIAL FIBRILLATION, NOTHING WAS DONE AND IS NOW IN SINUS RHYTHM, Appetite - Normal, Appetite - Special Diet. Denies: Shortness of Breath at Rest, Operative Discomfort, Sleep - Normal - BAD SLEEP HABITS FOR YEARS, COLITIS AND URINARY ISSUES FREQUENTLY UP AT NIGHT. TAKE NAPS DURING THE DAYTIME, Sexual Changes - Pain Is Patient Pain Free?: Yes Pain Location: none Pain Level: 0/10 Risk Factor Assessment - Chief Complaint Chief Complaint: PATEINT PRESENTS TO CARDIAC REHAB TODAY FOLLOWING RECENT CABG AT THE [facility] - Vital Signs Temperature: 97.5 F Respiratory Rate: 16 Pulse Ox: 96 Blood Pressure: 104/58 - Pulse Pulse Rate: 66 Pulse Rhythm: Regular - Hypertension How long have you been treated?: 4 YEARS Blood Pressure Sitting - Left Arm: 104/58 - Stress Stress: Recent - NO REALLY STRESS BUT IMPATIENCE AND FRUSTRATION. - Blood Cholesterol/Lipids Total Cholesterol (mg/dL) Goal = less than 200 mg/dL: 173 - 10/16/2020 HDL Cholesterol (mg/dL) Goal = less than 40 mg/dL: 70 LDL Cholesterol (mg/dL) Goal = less than 70 mg/dL: 93 Triglycerides (mg/dL) Goal = less than 150 mg/dL: 50 - Diabetes Nutrition Referral for Diabetes: No - Obesity Height: 5 ft 6 in Weight:: 158 lb Weight in Pounds: 158.0 lbs Weight Source: Standing Scale Body Mass Index (BMI): 25.4 Nutritional Referral for Obesity: No - Physical Inactivity Physical Inactivity: Reg Exercise 30 min/day, Recreational activity - Risk Stratification Risk Guidelines: Lowest Risk: Risk Factor for Smoking, Risk Factor for Dyslipidemia, Risk Factor for Diabetes, Risk Factor for Obesity, Risk Factor for Hypertension, Risk Factor for Sedentary Lifestyle, Risk Factor for Depression - Family History Family History: Family History (Last Reviewed 12/27/20 @ 09:26 by Jessy Lovelace) Mother CAD (coronary artery disease) History of coronary artery bypass surgery Brother CAD (coronary artery disease) History of coronary artery bypass surgery Father CVA (cerebral vascular accident) Motivation - Motivation to Participate On a scale of 1 to 10, how prepared are you to commit to attending program?: 9 What do you see as barriers to successfully being able to complete the program?: NO What do you see as the benefits of succesfully completing the program? In other words, what do you hope to get out of participating in the program?: STAMINA, MINIMIZE DIZZYNESS, GET BACK TO TENNIS AND SWIMMING REGULARLY. Are there issues you are dealing with that will interfere with completing the program?: NO Do you have a spouse or signficant other, family or friends who will help support you to complete the program?: YES
[2021-01-24 13:19] VITALS: BP 104/58; BP 128/62; BP 156/68; BMI 25.4
[2021-01-24 13:31] VITALS: BP 104/58; PULSE 66; RESP 16; TEMP 36.4; O2SAT 96; BMI 25.4
== END ==
PROVIDERS: PCP Family Medicine; Referring Provider Internal Medicine Cardiovascular Disease; Visit Provider Internal Medicine Cardiovascular Disease
DX: I25.10 Atherosclerotic heart disease of native coronary artery without angina pectoris (principal); Z95.1 Presence of aortocoronary bypass graft

== ENCOUNTER 2021-02-17 10:30 | Outpatient (RCR) | payer MEDICARE, OTHER, SELFPAY ==
[2021-01-24 13:19] VITALS: BMI 25.4
[2021-01-24 13:31] VITALS: BMI 25.4
== END 2021-02-18 23:59 ==
LOC: CR 10:30
PROVIDERS: PCP Family Medicine; Referring Provider Internal Medicine Cardiovascular Disease; Visit Provider Internal Medicine Cardiovascular Disease
DX: I25.10 Atherosclerotic heart disease of native coronary artery without angina pectoris (principal); Z95.1 Presence of aortocoronary bypass graft
CPT/HCPCS: 93798

== ENCOUNTER → 2021-02-28 08:37 | Outpatient (CLI) | payer MEDICARE, OTHER, SELFPAY ==
[2021-02-25 07:38] VITALS: BMI 23.2
[2021-02-28 09:17] LABS: Absolute Neutrophil Count 2.3 X10^3/uL (2.0-7.7); Basophil# 0.06 X10^3/uL; Basophil% 1.4 % (0-1); Eosinophil# 0.34 X10^3/uL; Eosinophils% 7.7 % (0-5); Hematocrit 39.9 % (40-54); Hemoglobin 12.9 g/dL (13.0-16.5); Lymphocyte % 20.5 % (19-41); Mean Corp Hgb Conc 32.3 g/dL (32-36); Mean Corpuscular Hgb 28.3 pg (27.0-32.0); Mean Corpuscular Volume 87.5 fL (80-94); Mean Platelet Vol. 8.9 fl (6.2-12.0); Monocyte# 0.76 X10^3/uL; Monocyte% 17.3 % (0-10); NRBC Flagged by Analyzer 0 % (0-5); Neutrophil % 52.4 % (47-70); Platelet Count 220 K/mm3 (150-450); RBC Distribution Width SD 41.4 fl (35.1-43.9); Red Blood Count 4.56 M/mm3 (4.6-6.2); White Blood Count 4.4 K/mm3 (4.4-11.0)
[2021-02-28 09:45] LABS: Vitamin D,25 Hydroxy 50.4 ng/mL
[2021-02-28 09:46] LABS: AST(SGOT) 43 U/L (15-37); Alanine Aminotransfer ALT/SGPT 77 U/L (16-61); Albumin, Serum 3.4 g/dL (3.2-5.0); Alkaline Phosphatase 246 U/L (45-117); Bilirubin, Direct 0.19 mg/dL (0.00-0.30); Globulin 3.8 g/dL (2.2-4.2); Protein, Total 7.2 g/dL (6.4-8.2)
[2021-02-28 09:48] LABS: ALB/GLOB Ratio 0.8 RATIO (0.9-2.4); AST(SGOT) 44 U/L (15-37); Alanine Aminotransfer ALT/SGPT 74 U/L (16-61); Albumin, Serum 3.4 g/dL (3.2-5.0); Alkaline Phosphatase 237 U/L (45-117); Anion Gap 3 (5-15); BUN 11 mg/dL (7-18); BUN/Creat Ratio 11.8 RATIO (10-20); Calcium,Total 8.8 mg/dL (8.5-10.1); Chloride 106 mmol/L (98-107); Cholesterol 142 mg/dL (200); Creatinine, Serum 0.93 mg/dL (0.70-1.30); EST Glomerular Filtration Rate 85 mL/min (>60); Est Glom Filt Rate - Afr Amer 103 mL/min (>60); Globulin 4.2 g/dL (2.2-4.2); Glucose 103 mg/dL (74-106); High Density Lipoprotein 71 mg/dL; Potassium 4.1 mmol/L (3.5-5.1); Protein, Total 7.6 g/dL (6.4-8.2); Sodium Level 139 mmol/L (136-145); Thyroid Stim Hormone (TSH) 4.62 uIU/mL (0.358-3.74); Triglycerides 56 mg/dL; Very Low Density Lipoprotein 11 mg/dL (5-40)
[2021-03-01 13:54] LABS: PSA, Total 4.4 ng/mL (0.0-4.0)
== END ==
PROVIDERS: PCP Family Medicine; Referring Provider Physician Assistant Medical; Visit Provider Physician Assistant Medical
DX: I25.110 Atherosclerotic heart disease of native coronary artery with unstable angina pectoris (principal); E55.9 Vitamin D deficiency, unspecified; I48.91 Unspecified atrial fibrillation; I97.89 Other postprocedural complications and disorders of the circulatory system, not elsewhere classified; N42.89 Other specified disorders of prostate
CPT/HCPCS: 36415; 80053; 80061; 80076; 82306; 84153; 84443; 85025

== ENCOUNTER 2021-03-19 10:30 | Outpatient (RCR) | payer MEDICARE, OTHER, SELFPAY ==
[2021-01-24 13:19] VITALS: BMI 25.4
[2021-02-19 00:43] VITALS: BMI 25.4
--- NOTE | 2021-02-25 07:30 | CR.ITP_ITS ---
Diagnosis Exercise - 30-day Assessment - Visit Date of Eval: 02/25/21 Session #:: 12 - 100% compliance to date! - Physician Prescribed Exercise Modalities: Treadmill, Airdyne, NuStep Frequency: 3x/week for 12 weeks [36 sessions] Intensity: 60-80% of age predicted maximum heart rate reserve Current METSs:: 5.5 increase from 3.5 Target Heart Rate:: 126-151 Current RPE:: 12-13 Maximum Excercise HR:: 89 Resting Blood Pressure: 110/50 Maximum Exercise Blood Pressure: 142/68 EKG Type: Sinus bradycardia to sinus rhythm rare PACs Current Physical Activity or Exercising minutes: 30-45 min - Outcomes & Goals Goals:: Verbalizes understanding of THR, RPE & goal METS by session 6, Documents in home exercise log/reports 30 min aerobic 5 day/wk by DC, Demonstrates accurate pulse taking by DC - Intervention & Plan Exercise Program Goals: Instruct on personal THR & RPE, Instruct on MET level & personal MET goal, Show patient to take own pulse /validate performance until accurate, Instruct on home exercise - 30-day Reassessments 30 day Reassessments:: Progressing - Physical Activity Home Exercise Physical Activity - Home Exercise: Safe Exercise, Warm-up, Self-monitoring, Cool-Down, Home Exercise > 30 min Daily, Sitting Time <3 hours/daily - Outcomes & Goals Outcomes/Goals: Demonstrates correct Warm-up/exercise Cool-Down (S3) if = 2.5 METs, Verbalizes symptoms of exercise intolerance by Session 3 (S3), Demonstrate safe equipment use (S3) & follows exercise prescrition (6) - Intervention & Plan Plan/Intervention: Instruct warm-up & cool-down if exercising at > 2 METs, Instruct on symptoms of exercise intolerance & actions to take, Instruct & monitor on saf, Assess intial functional capacity & safety risk - 30-day Reassessments 30 day Reassessments:: Progressing Nutrition - Initial Assessment Nutrition - 30-Day Assessment - Program Goals Nutrition Program Goals: LDL <100 optimal. 100 - 129 Near optimal. 130 - 159 Borderline High. 160 - 189 High. Total Cholesterol <200 desirable. 200 - 239 Borderline High. >/= 240 High. HDL < 40 Low >/=60 High. Triglycerides <150 desirable. <199 optimal. VlDL 5 - 40. HgbA1C <7%. BMI <25 Patient has diagnosis of Hyperlipidemia (ICD E78)?: Yes - Visit Date of Assessment:: 02/25/21 Session #:: 12 - Cholesterol/Lipids Determine presence & major risk factors that modify LDL goal: Hypertension or hypertensive medication, Family history of premature CHD in Male < 55 years: female <65 yearsFa, Age men > 45 years; women >/= 55 years Outcomes/Goals: Pt IDs own risk factors & lifestyle modifications by Session 10, Verbalizes symptoms of angina & response by session 3., Pt independently manages Intervention/Plan: Advocate for lipid panel cholesterol medication if applicable, Instruct on personal lipid levels & lipid goals/NCEP guidelines, Instruct on cholesterol Referral to dietitian:: No - Met with Nutritional Services on 02/11/21 30-day Reassessments:: Progressing - Diabetes (Other Core Measures) Diabetes Type: Not Applicable - Weight Mgt (Other Care) Not Applicable: Yes Height: 5 ft 6 in Weight:: 144 lb BMI: 23.2 Diagnosis Overweight/Obesity BMI> 30% ICD-10 E66: No Diagnosis High BMI/Morbid Obesity BMI> 35% ICD-10 Z68: No Intervention/Plan: Instruct on ideal BMI & set weight loss goal w/patient, Assist pt to ID & incorporate diet changes for weight loss by S9, Encourage goal of using 250-300dcal per session for weight loss 30 day Reassessments:: Met - Healthy Eating Habits Will attend diet classes:: Yes Outcomes/Goals:: Consume diet rich in vegs,fruits,whole grain/high fiber,fish,lean meat, Limit sat/trans fats,cholesterol & added salts & sugars Intervention/Plan:: Assess current eating habits 30-day Reassessments:: Progressing - Education Gave educational materials for:: Healthy eating Nutrition - 60-Day Assessment Nutrition - 90-Day Assessment Nutrition - Final Assessment Medical - Initial Assessment Medical- 30-Day Assessment - Visit Date of Eval: 02/25/21 Session #:: 12 - Medication Compliance Preventative Medication(s):: Aspirin, Statin/lipid, Beta ashlee H/O mental health issues: depression, anxiety, or addiction?: No Doesn?t believe in the benefits of treatment?: No Believes medications are unnecessary or harmful?: No Has a concern about medication side effects?: No Expresses concern over the cost of medications?: No Outcomes/Goals: Verbalizes medications,desired effect & common side effects @ DC, Pt self-reports following medication regimen, Keeps card in wallet w/medications listed by DC Interventions/plans: Instruct on medication effects & side effects, Review medication list w/patient every two weeks, Instruct importance of taking meds as ordered & assist problem solving 30-day Reassessments:: Progressing - Tobacco Use Tobacco Use: Non-smoker 30-day Reassessments:: Met - Hypertension Hypertension Diagnosis:: Hypertension ICD-10 I10 Resting Blood Pressure:: 110/50 [place] [employer] Hypertension Guidelines: [place] [employer] Hypertension Guidelines. Normal BP Less than 120/80. Elevated BP 120/80. Hypertension Stage 1: BP 130-139/80-89. Hypertesnion Stage 2: BP 140 or higher/90 or higher. Hypertension Crisis: BP higher than 180/120 Peak Exercise Blood Pressure:: 142/68 Outcomes/Goals: Able to verbalize/achieve optimal blood pressure <130/80, Incorporates diet changes & exercise for blood pressure control by DC Interventions/plan: Instruct on optimal blood pressure, hypertension & medications, Instruct on effects of sodium, alcohol, stress, exercise &hypertension 30 day Reassessments:: Met - Tobacco Cessation Referral Smoking Cessation Referral:: No Individual Education/Counseling:: No Education Schedule Given:: Yes - Online access to [facility]- 60-Day Assessment Medical- 90-Day Assessment Medical - Final Assessment Psychosocial - Initial Assess Psychosocial - 30-Day Assess - VIsit Date of Eval: 02/25/21 Session #:: 12 Not Applicable: Yes History of previous Mental disease:: No - Psychosocial Test Tool Used:: PHQ-9 Questionnaire phq-9 Severity: Severity. 1-4 Minimal Depression. 5-9 Mild Depression. 10-14 Moderate Depression. 15-19 Moderately Sever Depression. 20-27 Severe Depression. Rule: - Referral to Behavioral Health PS - Interventions: Yes Attend Stress Management Classes, No Referral to Behavioral Health if PHQ-9 score >9:, No Referral to [facility], No Referral to Physician if PHQ-9 if score is 5-9: - Outcomes/Goals: See list Psychosocial Outcomes/Goals:: ID's personal stressors & 2 strategies to manage stress by discharge - Intervention/Plan: See List Interventions/Plan:: Assess stressors,coping strategies & signs of derpression on admission, Instruct/assist pt to develop coping & personal stress Mgt strategies, Instruct patient to recognize signs & symptoms of depression, Instruct patient to recog - 30-day Reassessments: 30 day Reassessments:: Progressing Psychosocial - 60-Day Assess Psychosocial - 90-Day Assess Psychosocial - Final Assessmen Patient Health Questionnaire 30-Day Re-eval Assessment 1. Little interest or pleasure in doing things: Not at all 2. Feeling down, depressed, or hopeless: Not at all 3. Trouble falling or staying asleep, or sleeping too much: Several days 4. Feeling tired or having little energy: Not at all 5. Poor appetite or overeating: Not at all 6. Feeling bad about yourself -- or that you are a failure or have let yourself or your family down: Not at all 7. Trouble concentrating on things, such as reading the newspaper or watching television: Not at all 8. Moving or speaking so slowly that other people could have noticed. Or the opposite - being so fidgety or restless that you have been moving around a lot more than usual: Not at all 9. Thoughts that you would be better off , or of hurting yourself in some way: Not at all How difficult have these problems made it for you to do your work, take care of things at home, or get along with other people?: Not difficult at all Total Score: 1 Self-Efficacy 30-Day Re-eval Assessment We would like to know how confident you are in doing certain activities. Please select your confidence level for:: Select your confidence level for the following using the scale 1-10 where 1 is not at all confident and 10 is totally confident. Your score is the average of all 6 responses. Fatigue: How confident are you that you can keep the fatigue caused by your disease from interfering with the things you want to do? Select Number: 8 Physical Discomfort or Pain: How confident are you that you can keep the physical discomfort or pain of your disease from interfering with the things you want to do? Select Number: 9 Emotional Distress: How confident are you that you can keep the emotional distress caused by your disease from interfering with the things you want to do? Select Number: 10 Other Symptoms or Health Problems: How confident are you that you can keep other symptoms or health problems from interfering with the things you want to do? Select Number: 8 Different Tasks and Activities: How confident are you that you can do the different tasks and activities needed to manage your health condition so as to reduce your need to see a doctor? Select Number: 10 Medication: How confident are you that you can do things other than just taking medication to reduce how much your illness affects your everyday life? Nutrition Survey
[2021-02-25 07:38] VITALS: BP 110/50; BP 142/68; BMI 23.2
== END 2021-03-20 23:59 ==
LOC: CR 10:30
PROVIDERS: PCP Family Medicine; Referring Provider Internal Medicine Cardiovascular Disease; Visit Provider Internal Medicine Cardiovascular Disease
DX: I25.10 Atherosclerotic heart disease of native coronary artery without angina pectoris (principal); Z95.1 Presence of aortocoronary bypass graft
CPT/HCPCS: 93798

== ENCOUNTER → 2021-04-07 11:02 | Outpatient (CLI) | payer MEDICARE, OTHER, SELFPAY ==
[2021-03-24 08:28] VITALS: BMI 23.3
[2021-04-07 13:14] LABS: AST(SGOT) 25 U/L (15-37); Alanine Aminotransfer ALT/SGPT 34 U/L (16-61); Albumin, Serum 3.1 g/dL (3.2-5.0); Alkaline Phosphatase 100 U/L (45-117); Bilirubin, Direct 0.13 mg/dL (0.00-0.30); Protein, Total 7.1 g/dL (6.4-8.2)
== END ==
PROVIDERS: PCP Family Medicine; Referring Provider Physician Assistant Medical; Visit Provider Physician Assistant Medical
DX: I25.10 Atherosclerotic heart disease of native coronary artery without angina pectoris (principal)
CPT/HCPCS: 36415; 80076

== ENCOUNTER 2021-04-18 10:30 | Outpatient (RCR) | payer MEDICARE, OTHER, SELFPAY ==
[2021-02-25 07:38] VITALS: BMI 23.2
[2021-03-21 00:33] VITALS: BP 110/50; BP 142/68; BMI 25.4
--- NOTE | 2021-03-24 08:17 | CR.ITP_ITS ---
Diagnosis Exercise - 60-day Assessment - Visit Date of Eval: 03/24/21 Session #:: 23 - Physician Prescribed Exercise Modalities: Treadmill, Rower, Airdyne Frequency: 3x/week for 12 weeks [36 sessions] Intensity: 60-80% of age predicted maximum heart rate reserve Current METSs:: 7 Target Heart Rate:: 126-151 Current RPE:: 12-14 Maximum Excercise HR:: 114 Resting Blood Pressure: 128/64 Maximum Exercise Blood Pressure: 140/60 EKG Type: NSR to sinus tachy w/ rare pac rare atrial triplet - Outcomes & Goals Goals:: Verbalizes understanding of THR, RPE & goal METS by session 6, Documents in home exercise log/reports 30 min aerobic 5 day/wk by DC, Demonstrates accurate pulse taking by DC, Other additional outcome/goals: see below - Intervention & Plan Exercise Program Goals: Instruct on personal THR & RPE, Instruct on MET level & personal MET goal, Show patient to take own pulse /validate performance until accurate, Instruct on home exercise, Other additional plan/int - 30-day Reassessments 30 day Reassessments:: Progressing - Physical Activity Home Exercise Physical Activity - Home Exercise: Safe Exercise, Warm-up, Self-monitoring, Cool-Down, Home Exercise > 30 min Daily, Sitting Time <3 hours/daily - Outcomes & Goals Outcomes/Goals: Demonstrates correct Warm-up/exercise Cool-Down (S3) if = 2.5 METs, Verbalizes symptoms of exercise intolerance by Session 3 (S3), Demonstrate safe equipment use (S3) & follows exercise prescrition (6), Other: See below - Intervention & Plan Plan/Intervention: Instruct warm-up & cool-down if exercising at > 2 METs, Instruct on symptoms of exercise intolerance & actions to take, Instruct & monitor on saf, Assess intial functional capacity & safety risk, Other See below - 30-day Reassessments 30 day Reassessments:: Progressing Nutrition - Initial Assessment Nutrition - 30-Day Assessment Nutrition - 60-Day Assessment - Program Goals Nutrition Program Goals: LDL <100 optimal. 100 - 129 Near optimal. 130 - 159 Borderline High. 160 - 189 High. Total Cholesterol <200 desirable. 200 - 239 Borderline High. >/= 240 High. HDL < 40 Low >/=60 High. Triglycerides <150 desirable. <199 optimal. VlDL 5 - 40. HgbA1C <7%. BMI <25 Patient has diagnosis of Hyperlipidemia (ICD E78)?: Yes - Visit Date of Assessment:: 03/24/21 Session #:: 23 - Cholesterol/Lipids Determine presence & major risk factors that modify LDL goal: Hypertension or hypertensive medication, Low HDL cholesterol <40 mg/dL*, Family history of premature CHD in Male < 55 years: female <65 yearsFa, Age men > 45 years; women >/= 55 years Outcomes/Goals: Pt IDs own risk factors & lifestyle modifications by Session 10, Verbalizes symptoms of angina & response by session 3., Pt independently manages, Other Additional Outcomes/Goals: Intervention/Plan: Advocate for lipid panel cholesterol medication if appli cable, Instruct on personal lipid levels & lipid goals/NCEP guidelines, Instruct on cholesterol, Other additional plan/int Referral to dietitian:: No - met 02/11/21 30-day Reassessments:: Progressing - Diabetes (Other Core Measures) Diabetes Type: Not Applicable - Weight Mgt (Other Care) Height: 5 ft 6 in Weight:: 65.771 kg BMI: 23.3 Outcomes/Goals: Pt sets, maintains & shows weight loss goal & trend during rehab, Other additional outcomes/goals Intervention/Plan: Instruct on ideal BMI & set weight loss goal w/patient, Assist pt to ID & incorporate diet changes for weight loss by S9, Refer to Structured Weight Loss program as appropriate, Encourage goal of using 250- 300dcal per session for weight loss, Other additional plan/interventions 30 day Reassessments:: Progressing - Healthy Eating Habits Will attend diet classes:: Yes Outcomes/Goals:: Consume diet rich in vegs,fruits,whole grain/high fiber,fish,lean meat, Limit sat/trans fats,cholesterol & added salts & sugars, Other additional outcome/goals: Intervention/Plan:: Assess current eating habits, Other Additional plan/interventions 30-day Reassessments:: Progressing - Education Gave educational materials for:: Signs & symptoms of hypoglycemia, Signs & symptoms of hyperglycemia, Relate diabetes to coronary artery disease, Healthy eating Nutrition - 90-Day Assessment Nutrition - Final Assessment Medical - Initial Assessment Medical- 30-Day Assessment Medical- 60-Day Assessment - Visit Date of Eval: 03/24/21 Session #:: 23 - Medication Compliance Preventative Medication(s):: Aspirin, Statin/lipid, Beta ashlee H/O mental health issues: depression, anxiety, or addiction?: No Doesn?t believe in the benefits of treatment?: No Believes medications are unnecessary or harmful?: No Has a concern about medication side effects?: No Expresses concern over the cost of medications?: No Outcomes/Goals: Verbalizes medications,desired effect & common side effects @ DC, Pt self-reports following medication regimen, Keeps card in wallet w/ medications listed by DC, Other additional outcome/goals: Interventions/plans: Instruct on medication effects & side effects, Review medication list w/patient every two weeks, Instruct importance of taking meds as ordered & assist problem solving, Other additional 30-day Reassessments:: Progressing - Tobacco Use Tobacco Use: Non-smoker - Hypertension Hypertension Diagnosis:: Hypertension ICD-10 I10 Resting Blood Pressure:: 128/64 [place] [employer] Hypertension Guidelines: [place] [employer] Hypertension Guidelines. Normal BP Less than 120/80. Elevated BP 120/80. Hypertension Stage 1: BP 130-139/80-89. Hypertesnion Stage 2: BP 140 or higher/90 or higher. Hypertension Crisis: BP higher than 180/120 Peak Exercise Blood Pressure:: 140/60 Outcomes/Goals: Able to verbalize/achieve optimal blood pressure <130/80, Incorporates diet changes & exercise for blood pressure control by DC, Other additional outcomes/goals Interventions/plan: Instruct on optimal blood pressure, hypertension & medications, Instruct on effects of sodium, alcohol, stress, exercise &hypertension, Other additional plan/interventions 30 day Reassessments:: Progressing - Tobacco Cessation Referral Smoking Cessation Referral:: No Individual Education/Counseling:: No Education Schedule Given:: Yes Medical- 90-Day Assessment Medical - Final Assessment Psychosocial - Initial Assess Psychosocial - 30-Day Assess Psychosocial - 60-Day Assess - VIsit Date of Eval: 03/24/21 Session #:: 23 History of previous Mental disease:: No Psychosocial - 90-Day Assess Psychosocial - Final Assessmen Patient Health Questionnaire 60-Day Re-eval Assessment 1. Little interest or pleasure in doing things: Not at all 2. Feeling down, depressed, or hopeless: Not at all 3. Trouble falling or staying asleep, or sleeping too much: Several days 4. Feeling tired or having little energy: Not at all 5. Poor appetite or overeating: Not at all 6. Feeling bad about yourself -- or that you are a failure or have let yourself or your family down: Not at all 7. Trouble concentrating on things, such as reading the newspaper or watching television: Not at all 8. Moving or speaking so slowly that other people could have noticed. Or the opposite - being so fidgety or restless that you have been moving around a lot more than usual: Not at all 9. Thoughts that you would be better off , or of hurting yourself in some way: Not at all How difficult have these problems made it for you to do your work, take care of things at home, or get along with other people?: Not difficult at all Total Score: 1 Self-Efficacy 60-Day Re-eval Assessment We would like to know how confident you are in doing certain activities. Please select your confidence level for:: Select your confidence level for the following using the scale 1-10 where 1 is not at all confident and 10 is totally confident. Your score is the average of all 6 responses. Fatigue: How confident are you that you can keep the fatigue caused by your disease from interfering with the things you want to do? Select Number: 8 Physical Discomfort or Pain: How confident are you that you can keep the physical discomfort or pain of your disease from interfering with the things you want to do? Select Number: 9 Emotional Distress: How confident are you that you can keep the emotional distress caused by your disease from interfering with the things you want to do? Select Number: 10 Other Symptoms or Health Problems: How confident are you that you can keep other symptoms or health problems from interfering with the things you want to do? Select Number: 8 Different Tasks and Activities: How confident are you that you can do the different tasks and activities needed to manage your health condition so as to reduce your need to see a doctor? Select Number: 10 Medication: How confident are you that you can do things other than just taking medication to reduce how much your illness affects your everyday life? Nutrition Survey
[2021-03-24 08:28] VITALS: BP 128/64; BP 140/60; BMI 23.3
== END 2021-04-20 23:59 ==
LOC: CR 10:30
PROVIDERS: PCP Family Medicine; Referring Provider Internal Medicine Cardiovascular Disease; Visit Provider Internal Medicine Cardiovascular Disease
DX: I25.10 Atherosclerotic heart disease of native coronary artery without angina pectoris (principal); Z95.1 Presence of aortocoronary bypass graft
CPT/HCPCS: 93798

== ENCOUNTER 2021-04-21 06:38 | Outpatient (RCR) | payer MEDICARE, OTHER, SELFPAY ==
[2021-03-24 08:28] VITALS: BMI 23.3
[2021-04-21 00:26] VITALS: BP 128/64; BP 140/60; BMI 25.4
== END 2021-05-20 23:59 ==
LOC: CR 06:38
PROVIDERS: PCP Family Medicine; Referring Provider Internal Medicine Cardiovascular Disease; Visit Provider Internal Medicine Cardiovascular Disease
DX: I25.10 Atherosclerotic heart disease of native coronary artery without angina pectoris (principal); Z95.1 Presence of aortocoronary bypass graft
CPT/HCPCS: 93798

== ENCOUNTER 2021-04-23 13:00 | Outpatient (RCR) | payer SELFPAY ==
[2021-01-24 13:19] VITALS: BMI 25.4
[2021-01-24 13:31] VITALS: BMI 25.4
[2021-03-24 08:28] VITALS: BMI 23.3
== END 2021-05-20 23:59 ==
LOC: NS 13:00
PROVIDERS: PCP Family Medicine; Visit Provider Internal Medicine Cardiovascular Disease
DX: Z71.3 Dietary counseling and surveillance (principal)

== ENCOUNTER 2021-06-27 08:49 | Outpatient (CLI) | payer MEDICARE, OTHER, SELFPAY ==
[2021-03-24 08:28] VITALS: BMI 23.3
[2021-06-27 10:11] LABS: AST(SGOT) 55 U/L (15-37); Alanine Aminotransfer ALT/SGPT 80 U/L (16-61); Albumin, Serum 3.6 g/dL (3.2-5.0); Alkaline Phosphatase 101 U/L (45-117); Bilirubin, Direct 0.28 mg/dL (0.00-0.30); Cholesterol 139 mg/dL (200); Globulin 4.1 g/dL (2.2-4.2); High Density Lipoprotein 95 mg/dL; PSA,Total- Diagnostic 7.25 ng/mL (0.0-4.0); Protein, Total 7.7 g/dL (6.4-8.2); Triglycerides 48 mg/dL; Very Low Density Lipoprotein 10 mg/dL (5-40)
== END 2021-06-27 23:59 | disposition short-term general hospital (02) ==
LOC: LAB 08:53
PROVIDERS: Physician Assistant Medical; PCP Family Medicine; Referring Provider Urology; Visit Provider Urology
DX: R97.20 Elevated prostate specific antigen [PSA] (principal); I25.10 Atherosclerotic heart disease of native coronary artery without angina pectoris
CPT/HCPCS: 36415; 80061; 80076; 84153

== ENCOUNTER 2021-07-03 17:47 | Outpatient (CLI) | payer MEDICARE, OTHER, SELFPAY ==
[2021-03-24 08:28] VITALS: BMI 23.3
--- NOTE | 2021-07-03 17:55 | CT_ITS ---
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 This CT exam was performed using one or more of the following dose reduction techniques: automated exposure control, adjustment of the mA and/or kV according to patient size, and/or use of iterative reconstruction technique. This report was created using [employer] report generation technology. CONTRAST: IV 100mL [id number] COMPARISON: 6.25.21 FINDINGS: LUNGS AND PLEURAL SPACES: Unremarkable. No mass. No consolidation or edema. No pleural effusion or thickening. No pneumothorax. HEART: There are calcifications of the coronary arteries. Heart size is normal. No pericardial effusion. MEDIASTINUM: Unremarkable. No mediastinal or hilar adenopathy. Esophagus is unremarkable. No hiatal hernia. THYROID: Unremarkable. No thyroid lesions. BONES/JOINTS: Suture material is difficult to visualize by CT. No radiodense foreign body is noted near the right clavicle. There are degenerative findings of the thoracic spine. No suspicious lytic or blastic abnormality. VASCULATURE: Multiple median sternotomy wires are noted consistent for cardiac surgery. There is atherosclerotic calcification of the aortic arch with tortuosity and elongation of the aortic arch and descending thoracic aorta. Thoracic aorta is non-dilated. No thoracic aortic dissection. No obvious central pulmonary embolism although this study was not performed with the pulmonary embolism protocol. CT/Thorax/Ribs/Sternum WITH Contr IMPRESSION: Suture material is difficult to visualize by CT. No radiodense foreign body is noted near the right clavicle. Electronically Signed: Prasanth Hill MD at 19:42 EST , Service support ,
[2021-07-03 18:00] LABS: CREATININE FINGERSTICK 0.7 mg/dL (0.70-1.30); EGFR FINGERSTICK > 60.0000 mL/min (>60)
== END 2021-07-03 23:59 | disposition short-term general hospital (02) ==
LOC: CT 17:48
PROVIDERS: PCP Family Medicine; Visit Provider Nurse Practitioner Gerontology
DX: M79.5 Residual foreign body in soft tissue (principal)
CPT/HCPCS: 71260; Q9967

== ENCOUNTER 2021-07-15 16:17 | Outpatient (CLI) | payer MEDICARE, OTHER, SELFPAY ==
[2021-03-24 08:28] VITALS: BMI 23.3
--- NOTE | 2021-07-15 16:20 | MRI_ITS ---
MR Pelvis Male WO/W Contrast 07/15/2021 4:40 PM COMPARISON: None CLINICAL HISTORY: 71-year-old man with elevated PSA. PSA level not provided. TECHNIQUE: Standard prostate MRI protocol was used before and after administration of 13 cc IV Dotarem. FINDINGS: Prostate volume: 33 cc PSA density: PSA level not provided. Length of membranous urethra: 11 mm Post-biopsy hemorrhage: None Multiparametric MR evaluation: Heterogeneous appearance of the central gland is consistent with benign prostatic hyperplasia. Diffuse T2 hypointensity of the right peripheral zone mostly near the base with restricted diffusion. This most likely represents inflammation from prostatitis. No T1 hyperintensity to suggest postbiopsy hemorrhage. No suspicious T2 hypointense or diffusion restricting focal lesions. Seminal vesicles: Normal Lymphadenopathy: None Bones: Normal Neurovascular bundle and capsular margin: Normal MRI/Pelvis W/WO Contrast IMPRESSION: No suspicious T2 hypointense or diffusion restricting focal lesions. Findings suspicious for prostatitis involving the right peripheral zone. Benign prostatic hyperplasia. Electronically Signed: Miguel Johnson MD at 21:35 EST ,
== END 2021-07-15 23:59 | disposition short-term general hospital (02) ==
LOC: MRI 16:19
PROVIDERS: PCP Family Medicine; Visit Provider Urology
DX: N40.0 Benign prostatic hyperplasia without lower urinary tract symptoms (principal); R97.20 Elevated prostate specific antigen [PSA]
CPT/HCPCS: 72197; A9575

== ENCOUNTER → 2021-12-30 | Outpatient (CLI) | payer MEDICARE, OTHER, SELFPAY ==
[2021-03-24 08:28] VITALS: BMI 23.3
[2021-12-30 09:35] LABS: Absolute Lymphocyte Count 1.47 X10^3/uL (0.83-4.51); Absolute Neutrophil Count 3.3 X10^3/uL (2.0-7.7); Basophil# 0.05 X10^3/uL; Basophil% 0.9 % (0-1); Eosinophil# 0.24 X10^3/uL; Eosinophils% 4.2 % (0-5); Hemoglobin 14.4 g/dL (13.0-16.5); Lymphocyte # 1.47 X10^3/ul (0.83-4.51); Lymphocyte % 25.5 % (19-41); Mean Corp Hgb Conc 33.5 g/dL (32-36); Mean Corpuscular Hgb 29.7 pg (27.0-32.0); Mean Corpuscular Volume 88.7 fL (80-94); Mean Platelet Vol. 9.7 fl (6.2-12.0); Monocyte# 0.71 X10^3/uL; Monocyte% 12.3 % (0-10); NRBC Flagged by Analyzer 0 % (0-5); Neutrophil # 3.26 X10^3/uL (2.7-7.7); Neutrophil % 56.4 % (47-70); Platelet Count 211 K/mm3 (150-450); RBC Distribution Width CV 12.6 % (11.6-14.6); RBC Distribution Width SD 40.7 fl (35.1-43.9); Red Blood Count 4.85 M/mm3 (4.6-6.2); White Blood Count 5.8 K/mm3 (4.4-11.0)
[2021-12-30 10:06] LABS: AST(SGOT) 48 U/L (15-37); Alanine Aminotransfer ALT/SGPT 58 U/L (16-61); Albumin, Serum 3.5 g/dL (3.2-5.0); Alkaline Phosphatase 76 U/L (45-117); Anion Gap 6 (5-15); BUN 11 mg/dL (7-18); Bilirubin, Direct 0.29 mg/dL (0.00-0.30); Calcium,Total 8.9 mg/dL (8.5-10.1); Chloride 106 mmol/L (98-107); Cholesterol 119 mg/dL (200); Creatinine, Serum 0.91 mg/dL (0.70-1.30); EST Glomerular Filtration Rate 87 mL/min (>60); Est Glom Filt Rate - Afr Amer 105 mL/min (>60); Globulin 3.5 g/dL (2.2-4.2); Glucose 90 mg/dL (74-106); High Density Lipoprotein 73 mg/dL; Magnesium 2.1 mg/dL (1.6-2.6); Sodium Level 140 mmol/L (136-145); Triglycerides 42 mg/dL; Very Low Density Lipoprotein 8 mg/dL (5-40)
[2021-12-30 10:51] LABS: Vitamin D,25 Hydroxy 52.7 ng/mL
== END | disposition home or self-care (01) ==
LOC: LAB 08:16
PROVIDERS: PCP Family Medicine; Referring Provider Family Medicine; Visit Provider Family Medicine
DX: E55.9 Vitamin D deficiency, unspecified (principal); I25.110 Atherosclerotic heart disease of native coronary artery with unstable angina pectoris; R97.20 Elevated prostate specific antigen [PSA]
CPT/HCPCS: 36415; 80053; 80061; 82248; 82306; 83735; 84153; 85025

== ENCOUNTER → 2022-09-08 | Outpatient (CLI) | payer MEDICARE, OTHER, SELFPAY ==
[2021-03-24 08:28] VITALS: BMI 23.3
[2022-09-08 11:24] LABS: AST(SGOT) 41 U/L (15-37); Alanine Aminotransfer ALT/SGPT 51 U/L (16-61); Albumin, Serum 3.6 g/dL (3.2-5.0); Alkaline Phosphatase 70 U/L (45-117); Bilirubin, Direct 0.28 mg/dL (0.00-0.30); Cholesterol 132 mg/dL (200); Globulin 3.7 g/dL (2.2-4.2); High Density Lipoprotein 76 mg/dL; PSA,Total- Diagnostic 6.62 ng/mL (0.0-4.0); Protein, Total 7.3 g/dL (6.4-8.2); Triglycerides 61 mg/dL; Very Low Density Lipoprotein 12 mg/dL (5-40)
== END | disposition home or self-care (01) ==
LOC: LAB 08:44
PROVIDERS: PCP Family Medicine; Referring Provider Nurse Practitioner Gerontology; Visit Provider Nurse Practitioner Gerontology
DX: R97.20 Elevated prostate specific antigen [PSA] (principal); I25.10 Atherosclerotic heart disease of native coronary artery without angina pectoris
CPT/HCPCS: 36415; 80061; 80076; 84153

== ENCOUNTER → 2023-09-13 | Outpatient (CLI) | payer MEDICARE, OTHER, SELFPAY ==
[2021-03-24 08:28] VITALS: BMI 23.3
[2023-09-13 16:25] LABS: PSA,Total- Diagnostic 5.59 ng/mL (0.0-4.0)
== END | disposition home or self-care (01) ==
PROVIDERS: PCP Family Medicine; Referring Provider Urology; Visit Provider Urology
DX: R97.20 Elevated prostate specific antigen [PSA] (principal)
CPT/HCPCS: 36415; 84153

== ENCOUNTER → 2024-09-08 | Outpatient (CLI) | payer MEDICARE, OTHER, SELFPAY ==
[2021-03-24 08:28] VITALS: BMI 23.3
[2024-09-08 16:02] LABS: PSA,Total- Diagnostic 5.28 ng/mL (0.00-4.00)
== END | disposition home or self-care (01) ==
LOC: LAB 14:41
PROVIDERS: PCP Family Medicine; Referring Provider Urology; Visit Provider Urology
DX: R97.20 Elevated prostate specific antigen [PSA] (principal)
CPT/HCPCS: 36415; 84153